=== PATIENT | female | born 1985 | race Two or more races ===

== ENCOUNTER → 2020-06-23 14:24 | Outpatient (BNVA) | payer MEDICAID, SELFPAY | PROVIDERS: Visit Provider Advanced Practice Midwife | DX: Z01.419 Encounter for gynecological examination (general) (routine) without abnormal findings (principal); E66.8 Other obesity; E28.2 Polycystic ovarian syndrome | CPT/HCPCS: 81025; 99395 ==

== ENCOUNTER 2021-04-08 07:21 | Emergency (ER) | payer MEDICAID, SELFPAY ==
[2021-04-08 07:28] VITALS: BP 125/71; PULSE 114; O2SAT 98
[2021-04-08 07:51] VITALS: BP 122/76; PULSE 128; RESP 22; TEMP 38.4; O2SAT 97; BMI 41.6
[2021-04-08] MEDS: Acetaminophen 325 MG TABLET 650 MG PO (08:01)
--- NOTE | 2021-04-08 09:04 | ED_ITS ---
HPI - General Adult General Chief complaint: General Medical Stated complaint: charles,nausea,fully vacc Time Seen by Provider: 04/08/21 09:04 Source: patient Mode of arrival: ambulatory Limitations: no limitations History of Present Illness HPI narrative: headache sore throat starting last night. Tactile temp. Onset (ago): hour(s) Radiation: non-radiation Severity: mild Pain Consistency: constant Exacerbating factors: none Associated symptoms: fever/chills Treatments prior to arrival: none Related Data Previous Rx's Medication Instructions Recorded medroxyprogesterone 10 mg tablet 10 mg PO DAILY #10 tab 06/23/20 (Provera) vitamin with calcium 1 tab PO BEDTIME #30 tab 06/23/20 no.72-iron 27 mg-folic acid 1 mg tablet ( Vitamins Plus Low Iron) Allergies Allergy/AdvReac Type Severity Reaction Status Date / Time nut - unspecified [nut] Allergy Unknown RASH Unverified 02/13/20 15:45 NUTS Allergy Unknown hives Uncoded 04/30/19 00:00 Review of Systems Constitutional: Constitutional: Reports no additional constitutional complaints Eyes: Eyes: Reports no additional eye complaints ENT: Denies dizziness Cardiovascular: Cardiovascular: Reports no additional cardiovascular complaints Respiratory: Respiratory: Reports as per HPI Gastrointestinal: Gastrointestinal: Reports no additional gastrointestinal complaints Genitourinary: Genitourinary: Reports no additional female genitourinary complaints Musculoskeletal: Musculoskeletal: Reports no additional musculoskeletal complaints Integumentary/Breasts: Skin/Breast: Denies rash Neurologic: Reports system reviewed and no additional complaints, except as documented, Denies dizziness and Denies Sensory deficit (Neuro) Psychiatric: Psychiatric: Denies anxiety [facility] Past Medical History Medical History Irregular menses PCOS (polycystic ovarian syndrome) Surgical History History of loop electrical excision procedure (LEEP) Social History Social History Alcohol intake: never Advance Directives: No Patient : No Sexual orientation: Straight/Heterosexual Physical Exam Vital Signs: Vital Signs: Last Vital Signs Temp 97.8 F 04/08/21 12:31 Pulse 105 H 04/08/21 12:31 Resp 18 04/08/21 12:31 BP 124/74 04/08/21 12:31 Pulse Ox 98 04/08/21 12:31 Body Mass Index 41.6 Const: Other: obese, hirsuit, complaining of sore throat and headach Nu tritional Appearance: obese Orientation/consciousness: oriented to person and patient oriented x3 Limitations: no limitations HENMT: Other: TMS and oral pharynx normal, no exudate seen Head: Yes normal to inspection Ears: external ears normal General nose exam: Normal external nose present Mouth: Normal oral and palatal mucosa present and oropharynx normal Throat: Yes posterior oropharynx normal Eyes: General: appearance normal, both eyes and all related structures Neck: Other: supple Neck: Yes normal visual inspection Chest: Chest palpation & inspection: normal inspection of the chest Resp: Auscultation: clear to auscultation bilaterally Cardio: Jugular venous distension: no JVD Rate: regular rate Rhythm: regular rhythm Heart sounds: S1 normal heart sound present and S2 normal heart sound present GI: Inspection: Yes normal to inspection Palpation (GI): Soft to palpation, nontender and No hepatosplenomegaly present Auscultation: normal bowel sounds : General: Yes no CVA tenderness Back/Spine/Pelvis: Back: no CVA tenderness Skin: General skin exam: no rashes or lesions noted Neuro: General: oriented to person and patient oriented x3 Cranial nerves: Yes CN's II-XII intact bilaterally Motor exam (neuro): 5/5 motor strength present throughout Sensory Exam: No Sensory deficit (Neuro) Extrem: General: Yes normal to inspection Psych: Appearance: grossly normal Course Reevaluation(s) Reevaluation #1: patient with viral pharyngitis, will dc on tylenol and motrin rotating Time: 12:35 Medical Decision Making Lab Data Labs: Lab Results 04/08/21 04/08/21 Range/Units 09:04 09:04 COVID-19 (MARILY) Negative (Negative) COVID-19 Clin Com See Note S. pyogenes GrpA YARA Negative (Negative) Discharge Plan Discharge Clinical Impression: Viral illness Pharyngitis Qualifiers: Pharyngitis/tonsillitis etiology: unspecified etiology Qualified Code(s): J02.9 - Acute pharyngitis, unspecified Patient Disposition: Home, Self-Care Instructions: Pharyngitis (ED), Viral Syndrome (ED) Additional Instructions: tylenol 1gram alternating with motrin 800mg every three hours for fever and pain Prescriptions: No Action medroxyprogesterone [Provera] 10 mg tablet 10 mg PO DAILY Qty: 10 RF: 3 Vitamin Plus Low Iron 27 mg iron- 1 mg tablet 1 tab PO BEDTIME Qty: 30 RF: 11 Referrals: [facility] [Primary Care Provider] - 1 week
[2021-04-08 09:09] VITALS: BP 122/73; PULSE 102; RESP 20; TEMP 38.1; O2SAT 96
[2021-04-08 09:20] LABS: IDNOW Serial# 9DD0AD1C; Strep A Nucleic Acid Negative (Negative)
[2021-04-08 09:32] LABS: COVID-19 Test Negative (Negative)
[2021-04-08] MEDS: Ibuprofen 800 MG TABLET PO (10:48)
--- NOTE | 2021-04-08 10:49 | PC.NURSE ---
Pt has been resting quietly. Given po ibuprofen for throat and head pain.
[2021-04-08 12:31] VITALS: BP 124/74; PULSE 105; RESP 18; TEMP 36.6; O2SAT 98
== END 2021-04-08 12:43 | disposition home or self-care (01) ==
PROVIDERS: Emergency Provider Emergency Medicine
DX: B34.9 Viral infection, unspecified (principal); J02.9 Acute pharyngitis, unspecified; Z20.822 Contact with and (suspected) exposure to COVID-19
CPT/HCPCS: 36415; 87635; 87651; 99283; 99284

== ENCOUNTER 2022-03-10 10:45 | Outpatient (REF) | payer MEDICAID, SELFPAY ==
[2022-03-15 11:42] LABS: HPV mRNA E6/E7 rflx Not Detected (Not Detected)
== END 2022-03-10 10:46 | disposition home or self-care (01) ==
LOC: HO.LNP 10:45
PROVIDERS: Visit Provider Advanced Practice Midwife
DX: Z01.419 Encounter for gynecological examination (general) (routine) without abnormal findings (principal); E28.2 Polycystic ovarian syndrome; Z11.51 Encounter for screening for human papillomavirus (HPV)
CPT/HCPCS: 87624; 88142

== ENCOUNTER → 2022-11-08 08:03 | Outpatient (BNVA) | payer MEDICAID, SELFPAY | PROVIDERS: PCP Internal Medicine; Referring Provider Internal Medicine; Visit Provider Physician Assistant ==

== ENCOUNTER 2023-12-18 12:14 | Outpatient (REF) | payer MEDICAID, SELFPAY ==
[2023-12-18 13:36] LABS: Estimated Average Glucose 117 mg/dL; Hemoglobin A1c % 5.7 % (<6.0)
[2023-12-18 13:59] LABS: Alanine Aminotransferase 24 U/L (0-31); Albumin Level 4.2 g/dL (3.5-5.0); Alkaline Phosphatase 65 U/L (39-117); Anion Gap 13 (12-20); Aspartate Amino Transferase 25 U/L (5-31); Bilirubin Total 0.3 mg/dL (0.0-1.0); Blood Urea Nitrogen 12 mg/dL (9-16); Calcium 9.4 mg/dL (8.4-10.2); Carbon Dioxide 25 mmol/L (22-29); Chloride 104 mmol/L (96-108); Estimated Glomerular Filt Rate > 60; Glucose Random 135 mg/dL (60-115); Potassium 3.8 mmol/L (3.3-5.1); Sodium 138 mmol/L (135-145); Total Protein 7.7 g/dL (6.5-8.0)
[2023-12-19 08:55] LABS: Syphilis Screen Reactive (Nonreactive)
[2023-12-21 15:15] LABS: RPR Quantitative Reactive 1:4 (Nonreactive); T.Pallidum Particle Agg Test Reactive (Nonreactive)
== END 2023-12-18 12:15 | disposition home or self-care (01) ==
LOC: HO.HHCL 12:14
PROVIDERS: Referring Provider Advanced Practice Midwife; Visit Provider Nurse Practitioner Family
DX: E66.01 Morbid (severe) obesity due to excess calories (principal); Z68.42 Body mass index [BMI] 45.0-49.9, adult; A53.0 Latent syphilis, unspecified as early or late
CPT/HCPCS: 36415; 80053; 83036; 86592; 86780

== ENCOUNTER 2024-07-25 13:11 | Outpatient (AMB) | payer OTHER, SELFPAY ==
--- NOTE | 2024-07-25 13:15 | MHC.OFFVIS ---
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 She has a history of abnormal Pap smears. She says her periods come irregularly she has PCOS for years she said she lost her insurance for few years and now she has a back. She says her last periods started that the beginning of June and it lasted as usual about 3 days. She said she has had longer periods of no menses in the past and on questioning she tells me she was given Provera before. She tells me she has been trying to get for about 3 years. . 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 She tends to nothing during the day and eats at night. She was on metformin in the past she says for PCOS. She said she had asked about weight loss injections in the past and was told she did not have the qualifications for. She says she had gone to the weight management program in the past but that is when she lost her insurance and so she could not continue with them. She is very much interested in starting again she has made an appointment with her primary care provider but it is not till the end of this month and she was going to be asking about weight management referral again so she would be very happy if I could place the referral today. She is not sure when she last had fasting blood work but she said her blood test in the office was okay She does not think she had pre diabetes. She also went to urgent care downstairs at the [facility] about a week ago for what they said was an abscess under her left breast and gave her antibiotics and something for her leg but she got mixed up on how to take them and she thinks maybe she has half a bottle left and she was taking the medicines about once a day sometimes she would forget. [facility] Medical History Irregular menses PCOS (polycystic ovarian syndrome) Surgical History History of loop electrical excision procedure (LEEP) Family History Mother Hypertension Father No problems noted. Sister No problems noted. Brother No problems noted. Social History Household Members: None Housing: House Alcohol intake: current Alcohol intake frequency: holidays/special occasions only Patient Tobacco Use Status: Never used Tobacco Current occupational status: employed Current occupation: [employer] employee Sexual orientation: Straight/Heterosexual Gender identity: Female Female Reproductive History Menstrual Age of Menarche: 17 Duration of menses: other control method: none Total pregnancies: 0 Date of last pap smear: 03/11/22 (neg.) History of abnormal pap smear: Yes (hx,abn) Physical Exam Vital Signs: Last Vital Signs BP 118/70 07/25/24 13:16 BMI result Body Mass Index 49.8 Const Other: Marked obesity hirsute is Um thinning of hair on scalp. Patient has a healing abscess that is no longer draining under left breast in bra line that is not inflamed. Patient says she popped it about a week ago and it is getting better. General: healthy appearing, comfortable, no acute distress, well developed and alert Nutritional Appearance: average body habitus Orientation/consciousness: patient oriented x3 Limitations: no limitations HEENT Head: Yes normocephalic Neck Neck: Yes normal visual inspection Chest Chest palpation & inspection: normal inspection of the chest Breast/axilla inspection: normal inspection of the breasts and normal inspection of the axillae Breast/axilla palpation: normal palpation of the breasts and normal palpation of the axillae Resp Effort & Inspection: normal respiratory effort GI Inspection: Yes normal to inspection, No Abdominal wall edema and No distended Palpation (GI): Soft to palpation and nontender Other: External vagina within normal limits adipose tissue noted making challenging exam cervix nulliparous pink smooth healthy appearing vaginal mucosa and cervical surface slightly reddened with a white discharge that is consistent with mild yeast patient denies vaginal itching at this time.. No organomegaly nontender fair tone with Kegel. General: Yes bladder normal to palpation External Female Exam: normal external appearance and normal appearance of the urethra Speculum Exam - Vagina: normal appearance of the vagina, normal palpation and normal vaginal discharge Speculum Exam - Cervix: normal appearance of the cervix, normal palpation and nontender Bimanual exam- vagina & uterus: normal bimanual exam, normal palpation, uterine size normal, bladder normal to palpation, consistency normal, normal palpation, uterine mobility normal, uterine shape normal, No Cervical tenderness present, non-tender and no cervical motion tenderness Bimanual Exam- Adnexa, other: normal adnexae, no masses, normal and No adnexal tenderness Neuro General: patient oriented x3 Assessment & Plan Assessment & Plan (1) PCOS (polycystic ovarian syndrome): Code(s): E28.2 - Polycystic ovarian syndrome Category: Medical (2) Well woman exam with routine gynecological exam: Code(s): Z01.419 - Encounter for gynecological examination (general) (routine) without abnormal findings Category: Medical (3) Irregular menses: Code(s): N92.6 - Irregular menstruation, unspecified Category: Medical (4) Family planning: Code(s): Z30.09 - Encounter for other general counseling and advice on contraception Category: Social Hx (5) Hirsutism: Code(s): L68.0 - Hirsutism Category: Medical (6) Obesity, morbid, BMI 40.0-49.9: Code(s): E66.01 - Morbid (severe) obesity due to excess calories Category: Medical Plan Pap smear done because of history of abnormals. And also she is due Cultures done for infection based on how it appears I am treating her with miconazole 7 now which may or may not be covered by her insurance. She does not have to treat it now but it will be available to her should she start feeling itchy as she is still taking antibiotics. Patient was seeking guidance from me on what she should do about the antibiotics she is on and given that she did not know the name she did not know how many she was given she did not know [place] she was put to taken a day or for how many days I could not begin to give her guidance on this and I suggested she either return to urgent care and described what she has left or returned to the pharmacist and ask the same question as I could not pass and opinion on this. It did appear like the abscess was healing Regardless most of the discussion was around her obesity and the PCOS and her desire to get and my recommendation that she not get until she work on losing the weight and lose significant weight. Discussed the interplay of PCOS and all of the elevated hormones which are leading to all of the dyscrasias that she is noticing including hair loss the hirsute is Um the irregular menses and the obesity in general discussed the likelihood if not now of having prediabetes or diabetes sooner later because of the elevated hormonal milieu. Discussed the PCOS is more of a symptom then cause of the issue and the metformin would be given more because of the pre diabetes then PCOS in general. I offered to place for her a referral to the bariatric weight management program as she is interested now in resuming her efforts. Discussed that it may still have to go through her primary care provider and she should definitely discuss this with her primary care provider at the end of July as well. Discussed also that if she ever missed a period longer than 3 months she should call and be seen so that we could prescribe Provera for her she has taken this in the past. Discussed that there is no one pill for PCOS that sometimes we prescribed control pills or other pills to manage the menstrual part of it and that sometimes if somebody is on a control pill soft sugar cutter may also prescribe a pill for the hirsute is Um but that that is a separate issue she may also need a referral to endocrinology we will leave that to her primary care provider. She also expressed interested in the injections for weight loss and I see this is in the conversation she should continue with her primary care provider as well. Orders: Orders Pap Smear Today Z00.00 - Encounter for general adult medical examination without abnormal findings Bacterial Vaginosis Panel Today N89.8 - Other specified noninflammatory disorders of vagina CT NG by PCR Today N89.8 - Other specified noninflammatory disorders of vagina, Z20.2 - Contact with and (suspected) exposure to infections with a predominantly sexual mode of transmission Referrals Medical Weight Management Referral E28.2 - Polycystic ovarian syndrome, E66.01 - Morbid (severe) obesity due to excess calories, L68.0 - Hirsutism, N92.6 - Irregular menstruation, unspecified, Z01.419 - Encounter for gynecological examination (general) (routine) without abnormal findings, Z30.09 - Encounter for other general counseling and advice on contraception Medications: New miconazole nitrate 2% (Miconazole-7) 1 appful vaginal BEDTIME 7 days 45 grams 1RF Coding Level of Care Code Complex EM visit Add On G2211 Diagnoses PCOS (polycystic ovarian syndrome) E28.2 Well woman exam with routine gynecological exam Z01.419 Irregular menses N92.6 Family planning Z30.09 Hirsutism L68.0 Obesity, morbid, BMI 40.0-49.9 E66.01
[2024-07-25 13:16] VITALS: BP 118/70; BMI 49.8
--- OUTSIDE RECORDS SUMMARY | 2024-07-25 15:43 | XMS_ITS | Encounter Summary ---
Author Organization [employer] Address [address] [place] [address] [address] [place] [address] Care Team Providers Care Directional Survey Drafter Name Role Phone Willa Charles MD Primary Care Provide r Encounter Details Date Type Department Care Team (Late st Contact Info) Description 08/19/2022 Orders Only [facility] [address] [place] [id number] Willa Charles MD [address] [place], [place] [phone] Pruritus (Primary Dx) Social History Tobacco Use Types Packs/Day Years Used Date Smoking Tobacco: Never Passive Smoke Exposure: Never Smokeless Tobacco: Never Alcohol Use Standard Drinks/Week Comments Not Currently 0 (1 standard drink = 0.6 oz pur e alcohol) Comments No Sex and Gender Information Value Date Recorded Sex Assigned at Female 03/28/2022 10:20 AM EDT Legal Sex Female 10:20 AM EDT Gender Identity Female 03/28/2022 10:20 AM EDT Sexual Orientation Straight 03/28/2022 10 :20 AM EDT COVID-19 Exposure Response Date Recorded In the last 10 days, have yo u been in contact with someone who was confirmed or suspected to have Coronavirus/COVID-19? No / Unsure 08/18/2022 3:31 PM EDT documented as of this encounter Plan of Treatment Upcoming Encounters Date Type Department Care Team (Late st Contact Info) Description 08/26/2024 9:15 AM EDT Office Visit [facility] [address] [place] [id number] Willa Charles MD [address] [place], [place] [phone] documented as of this encounter Visit Diagnoses Diagnosis Pruritus- Primary Unspecified pruritic disorder documented in this encounter Care Teams Directional Survey Drafter Relationship Specialty Start Date End Date Willa Charles MD [address] [place], [place] [phone] PCP - General Family Medicine 02/07/18 documented as of this encounter
--- OUTSIDE RECORDS SUMMARY | 2024-07-25 15:44 | XMS_ITS | Encounter Summary ---
Author Organization [employer] Address [address] [place] [address] 7[address] [place] [address] Care Team Providers Care Bed Teacher Name Role Phone Willa Charles MD Primary Care Provide r Reason for Referral * Consultation (Routine) - Closed Specialty Diagnoses / Procedures Referred By Contac t Referred To Contact Physical Therapy Diagnoses Sprain of left hip, initial encounter Chronic left-sided low back pain with left-sided sciatica Clarita Fisher MD [address] [place] [phone] Phone: tel: fax: [facility] Physical Therapy [address] [place] [address] Phone: tel: fax: Referral ID Status Reason Start Date Expiration Date V isits Requested Visits Authorized [id number] Closed Specialty Services Required 07/17/2024 07/17/2025 1 1 Reason for Visit * Reason Comments left leg pain Encounter Details Date Type Department Care Team (Late st Contact Info) Description 07/17/2024 6:00 PM EST Office Visit [facility] [address] [place] [address] [phone] Clarita Fisher MD [address] [place] [address] [phone] Sprain of left hip, initial encounter (Primary Dx); Chronic left-sided low back pain with left-sided sciatica; Folliculitis; Nasal congestion; Class 3 severe obesity due to excess calories without serious comorbidity with body mass index (BMI) of 45.0 to 49.9 in adult ([facility]) Social History Tobacco Use Types Packs/Day Years Used Date Smoking Tobacco: Never Passive Smoke Exposure: Never Smokeless Tobacco: Never Alcohol Use Standard Drinks/Week Comments Never 0 (1 standard drink = 0.6 oz pur e alcohol) Alcohol Answer Date Recorded Frequency of Alcohol Consumption Not on file 12/18/2023 Average Number of Drinks Not on file 024 Frequency of Binge Drinking Not on file 11/27 Score 0 12/18/2023 Depression Answer Date Recorded Patient Health Questionnaire-9 Score 0 12/18/2023 Patient Health Questionnaire-9 Score 0 12/18/2023 Last PHQ-9: Questionnaire Data Not on file 0 12/18/2023 Housing Stability Answer Date Recorded What is your housing situation today? I have dhruv espinoza 03/27/[address] you li ve. Do you have problems with any of the following? None of the above 03/27/2023 Food Insecurity Answer Date Recorded Within the past 12 months, y ou worried that your food would run out before you got money to buy more: Never True 03/27/2023 Within the past 12 months,th e food you bought just didn't last and you didn't have enough money to get more: Never True Transportation Answer Date Recorded In the past 12 months, has l ack of transportation kept you from medical appts, meetings, work or from getting things needed for daily living? No 03/27/2023 Utilities Answer Date Recorded In the past 12 months, has t he electric, gas, oil or water company threatened to shut off services in your home? No 03/27/2023 Depression Answer Date Recorded Patient Health Questionnaire-2 Score 0 12/18/2023 Comments No Sex and Gender Information Value Date Recorded Sex Assigned at Female 03/28/2022 10:20 AM EDT Legal Sex Female 10:20 AM EDT Gender Identity Female 03/28/2022 10:20 AM EDT Sexual Orientation Straight 03/28/2022 10 :20 AM EDT documented as of this encounter Last Filed Vital Signs Vital Sign Reading Time Taken Comments Blood Pressure 133/69 07/17/2024 5:51 PM EST Pulse 88 07/17/2024 5:51 PM EST Temperature 36.1 ??C (97 ??F) 07/17/2024 5:51 PM EST Respiratory Rate 20 07/17/2024 5:51 PM EST Oxygen Saturation 98% 07/17/2024 5:51 PM EST Inhaled Oxygen Concentration - - Weight 115 kg (254 lb) 07/17/2024 5:51 PM EST Height 152.4 cm (5') 07/17/2024 5:51 PM EST Body Mass Index 49.61 07/17/2024 5:51 PM EST documented in this encounter Progress Notes * Clarita Fisher MD - 07/17/2024 6:00 PM EST SUBJECTIVE: Ne Neff is a 39 y.o. year old female who presents for [facility]/leg pain . Denies recent illness, injury, or hospitalization. Acute Concerns: Patient has exacerbation of low back pain radiated to the left hip and leg for approximately 2 weeks. She has not had any recent fall or accidents but does recall several times when she has been walking on ice and slipped without falling. She has history of chronic low back pain for many years, no UTI symptoms, fever, chills, nausea or vomiting. Social History Social History Narrative Not on file Patient Active Problem List Diagnosis Childhood obesity High grade squamous intraepithelial lesion of cervix Polycystic ovary syndrome Left foot pain Class 3 severe obesity due to excess calories without serious comorbidity with body mass index (BMI) of 45.0 to 49.9 in adult ([facility]) Neck pain Muscle spasm Tinea versicolor PCOS (polycystic ovarian syndrome) COVID-19 virus infection Right non-suppurative otitis media Missed period Sprain of left hip Chronic left-sided low back pain with left-sided sciatica Folliculitis No family history on file. Review of Systems Constitutional: Negative for chills, fatigue and fever. HENT: Positive for rhinorrhea. Negative for congestion, ear pain, nosebleeds, sinus pressure, sore throat and trouble swallowing. Eyes: Positive for itching. Negative for pain and discharge. Respiratory: Negative for cough, chest tightness and shortness of breath. Cardiovascular: Negative for chest pain, palpitations and leg swelling. Gastrointestinal: Negative for abdominal pain, blood in stool, constipation, diarrhea and nausea. Endocrine: Negative for polydipsia and polyuria. Genitourinary: Negative for dysuria, frequency, genital sores, pelvic pain and vaginal discharge. Musculoskeletal: Positive for arthralgias, back pain and gait problem. Negative for neck pain. Skin: Negative for rash. Allergic/Immunologic: Negative for environmental allergies. Neurological: Negative for dizziness, seizures, weakness, light-headedness and headaches. Hematological: Negative for adenopathy. Psychiatric/Behavioral: Negative for agitation, behavioral problems, self-injury and suicidal ideas. OBJECTIVE: Vitals: 07/17/24 1751 BP: 133/69 Pulse: 88 Resp: 20 Temp: 97 ??F (36.1 ??C) SpO2: 98% Physical Exam HENT: Right Ear: Tympanic membrane and ear canal normal. Left Ear: Tympanic membrane and ear canal normal. Mouth/Throat: Mouth: Mucous membranes are moist. Pharynx: No oropharyngeal exudate or posterior oropharyngeal erythema. Eyes: Pupils: Pupils are equal, round, and reactive to light. Cardiovascular: Rate and Rhythm: Regular rhythm. Pulses: Normal pulses. Heart sounds: Normal heart sounds. No murmur heard. Pulmonary: Breath sounds: Normal breath sounds. Abdominal: General: Bowel sounds are normal. Palpations: Abdomen is soft. Tenderness: There is no abdominal tenderness. Musculoskeletal: Cervical back: Neck supple. Thoracic back: Spasms and tenderness present. Lumbar back: Tenderness present. Decreased range of motion. Positive left straight leg raise test. Left hip: Tenderness present. Decreased range of motion. Decreased strength. Left upper leg: Tenderness (thigh/ext) present. Left knee: Tenderness present over the lateral joint line and LCL. Skin: General: Skin is warm. Findings: Lesion (1cm papular lesion under left breast area, midly erythematous, no discharge or tenderness. Mild I can see my patients that I see need to CC patient be seen) present. Neurological: General: No focal deficit present. Mental Status: She is alert and oriented to person, place, and time. Psychiatric: Mood and Affect: Mood normal. Behavior: Behavior normal. Office Visit on 07/17/2024 Component Date Value Ref Range Status Hemoglobin A1C 07/17/2024 5.9 4.0 - 6.0 % Final QC Media Lot # 07/17/2024 [id number] Final Lot# Expiration Date 07/17/2024 [id number] Final Glucose Blood, POC 07/17/2024 97 60 - 200 mg/dL Final QC Media Lot # 07/17/2024 [id number] Final Lot# Expiration Date 07/17/2024 [id number] Final Problem List Items Addressed This Visit Sprain of left hip - Primary Take meloxicam and Flexeril. Toradol 30 mg IM today, can take Tylenol tomorrow Refer to PT. 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 Meloxicam x 1 week +Tylenol twice daily as needed and Flexeril nightly. Caution with constipation, dry mouth and dizziness. Apply heat to affected area and diclofenac gel twice daily x 1 week then as needed. Referred to PT and follow-up with PCP in 4 to 6 weeks Relevant Orders Referral to Physical Therapy Folliculitis No evidence of diabetes, patient is prediabetic and results have been discussed with her. Keep the area clean and dry with soap and water. Can apply Desitin ointment to affected area, avoid poking on the area. Take Bactrim x 7 days. Class 3 severe obesity due to excess calories without serious comorbidity with body mass index (BMI) of 45.0 to 49.9 in adult (CMS/HCC) No evidence of DM Advised to fu w PCP re Obesity rx w meds Other Visit Diagnoses Nasal congestion Relevant Medications levocetirizine (Xyzal) 5 MG tablet Follow Up: Current Outpatient Medications on File Prior to Visit Medication Sig Dispense Refill amoxicillin (Amoxil) 500 MG capsule TAKE 1 CAPSULE BY MOUTH EVERY TWELVE HOURS FOR 10 DAYS 20 capsule 0 fluticasone (Flonase) 50 MCG/ACT nasal spray 1-2 sprays per nostril as needed for congestion up to BID, Shake gently. Before first use, prime pump. After use, clean tip and replace cap. 16 g 2 metFORMIN, OSM, (Fortamet) 500 MG 24 hr tablet Take 1 tablet (500 mg) by mouth with evening meal. Do not crush, chew, or split. 30 tablet 11 [DISCONTINUED] acetaminophen (Tylenol 8 Hour) 650 MG ER tablet TAKE 1 TABLET BY MOUTH EVERY 8 HOURSAS NEEDED FOR MILD PAIN 30 tablet 0 [DISCONTINUED] cyclobenzaprine (Flexeril) 10 MG tablet Take 1 tablet (10 mg) by mouth if needed at bedtime for muscle spasms for up to 10 days. 10 tablet 0 [DISCONTINUED] diphenhydrAMINE (BENADryl) 25 MG tablet Take 1 tablet (25 mg) by mouth every 6 (six)hours if needed for itching. 30 tablet 0 [DISCONTINUED] levocetirizine (Xyzal) 5 MG tablet Take 1 tablet (5 mg) by mouth in the evening. 30 tablet 0 No current facility-administered medications on file prior to visit. documented in this encounter Miscellaneous Notes * Assessment & Plan Note - Clarita Fisher MD - 07/17/2024 7:07 PM EST Associated Problem(s): Class 3 severe obesity due to excess calories without serious comorbidity with body mass index (BMI) of 45.0 to 49.9 in adult ([facility]) No evidence of DM Advised to fu w PCP re Obesity rx w meds * Assessment & Plan Note - Clarita Fisher MD - 07/17/2024 6:55 PM EST Associated Problem(s): Sprain of left hip Take meloxicam and Flexeril. Toradol 30 mg IM today, can take Tylenol tomorrow Refer to PT. Counseled against sitting or standing in the same position for more than 1 hour * Assessment & Plan Note - Clarita Fisher MD - 07/17/2024 6:54 PM EST Associated Problem(s): Folliculitis No evidence of diabetes, patient is prediabetic and results have been discussed with her. Keep the area clean and dry with soap and water. Can apply Desitin ointment to affected area, avoid poking on the area. Take Bactrim x 7 days. 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 Meloxicam x 1 week +Tylenol twice daily as needed and Flexeril nightly. Caution with constipation, dry mouth and dizziness. Apply heat to affected area and diclofenac gel twice daily x 1 week then as needed. Referred to PT and follow-up with PCP in 4 to 6 weeks documented in this encounter Plan of Treatment Upcoming Encounters Date Type Department Care Team (Late st Contact Info) Description 08/26/2024 9:15 AM EDT Office Visit [facility] [address] [place] [phone] Willa Charles MD [address] [place] [address] Scheduled Referrals Name Type Priority Associated Diagnoses Orde r Schedule Referral to Physical Therapy Outpatient Referral Routine Sprain of left hip, initial encounter Chronic left-sided low back pain with left-sided sciatica Expected: 07/17/2024 (Approximate), Expires: 07/17/2025 documented as of this encounter Procedures Procedure Name Priority Date/Time Associated Diagnosis Comments POCT GLYCATED HEMOGLOBIN, TOTAL Routine 07/17/2024 7:16 PM EST Class 3 severe obesity due to excess calories without serious comorbidity with body mass index (BMI) of 45.0 to 49.9 in adult ([facility]) POCT GLUCOSE Routine 07/17/2024 7:16 PM EST Class 3 severe obesity due to excess calories without serious comorbidity with body mass index (BMI) of 45.0 to 49.9 in adult ([facility]) documented in this encounter Results * POCT Glucose (07/17/2024 7:16 PM EST) Glucose Blood, POC 97 60 - 200 mg/dL QC Media Lot # [id number] Lot# Expiration Date Blood Capillary blood specimen / Unknown 07/17/2024 7:16 PM EST Clarita Fisher MD POINT OF CARE TEST ENTER /EDIT ORDERABLES Final Result * POCT HGB A1C (07/17/2024 7:16 PM EST) Hemoglobin A1C 5.9 4.0 - 6.0 % QC Media Lot # [id number] Lot# Expiration Date 8, Blood 07/17/2024 7:16 PM EST Clarita Fisher MD POINT OF CARE TEST ENTER /EDIT ORDERABLES Final Result documented in this encounter Visit Diagnoses Diagnosis Sprain of left hip, initial encounter- Primary Chronic left-sided low back pain with left-sided sciatica Folliculitis Other specified disease of hair and hair follicles Nasal congestion Other diseases of nasal cavity and sinuses Class 3 severe obesity due to excess calories without serious comorbidity with body mass index (BMI) of 45.0 to 49.9 in adult ([facility]) documented in this encounter Administered Medications Inactive Administered Medications - up to 3 most recent administrations Medication Order MAR Action Action Date Dose Rate Site ketorolac (Toradol) injection 30 mg 30 mg, Intramuscular, Once, On Mon07/17/24 at 1845, For 1 doseIndications:Sprain of left hip, initial encounter Given 07/17/2024 6:45 PM EST 30 mg Left Deltoid documented in this encounter Additional Health Concerns Assessment Noted Time PHQ-9 Depression Total Score: 0 12/18/19 24 10:49 AM EDT documented as of this encounter Care Teams Bed Teacher Relationship Specialty Start Date End Date Willa Charles MD [address] [place] [address] PCP - General Family Medicine 02/07/18 documented as of this encounter
--- OUTSIDE RECORDS SUMMARY | 2024-07-25 15:44 | XMS_ITS | Encounter Summary ---
Author Organization [facility] Address [address] [place] [address] Phone Care Team Providers Care Primary Teacher Name Role Phone Lakeisha Lau NP Primary Care Provider Unavail able Encounter Details Date Type Department Care Team (Late st Contact Info) Description 01/12/2017 Conversion Encounter [facility] - [address] [address] Social History Tobacco Use Types Packs/Day Years Used Date Smoking Tobacco: Never Assessed Comments Unknown Sex and Gender Information Value Date Recorded Sex Assigned at Not on file Legal Sex Female 4:20 PM EDT Gender Identity Not on file Sexual Orientation Not on file documented as of this encounter Plan of Treatment Not on file documented as of this encounter Visit Diagnoses Not on filedocumented in this encounter Care Teams Primary Teacher Relationship Specialty Start Date End Date Lakeisha Lau NP PCP - General 01/06/17 documented as of this encounter
--- OUTSIDE RECORDS SUMMARY | 2024-07-25 15:44 | XMS_ITS | Encounter Summary ---
Author Organization [email or web address] Address [address] [place] [address] 7 [place] [address] Care Team Providers Care Workforce Management Coordinator Name Role Phone Willa Charles MD Primary Care Provide r Reason for Visit * Reason Onset Date Comments Referral 08/02/2022 Encounter Details Date Type Department Care Team ([facility] st Contact Info) Description 08/02/[address] [facility] [address] [place] [address] Willa Charles MD [address] [place] [address] Referral Social History Tobacco Use Types Packs/Day Years Used Date Smoking Tobacco: Never Passive Smoke Exposure: Never Smokeless Tobacco: Never Alcohol Use Standard Drinks/Week Comments Not Currently 0 (1 standard drink = 0.6 oz pur e alcohol) Comments Unknown Sex and Gender Information Value Date Recorded Sex Assigned at Female 03/28/2022 10:20 AM EDT Legal Sex Female 10:20 AM EDT Gender Identity Female 03/28/2022 10:20 AM EDT Sexual Orientation Straight 03/28/2022 10 :20 AM EDT documented as of this encounter Miscellaneous Notes * Telephone Encounter - Haven Castellon RN - 08/02/2022 1:11 PM EST RN returned call to Britton who reports pt was referred by Dr. 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 Per Britton since pt has [facility] they need a referral from the PCP office due to needing an insurance authorization number. Britton is requesting referral to be faxed to [phone]. RNwill request referral to be placed by Dr. Sal and send message to referral team to process referral STAT as pt's appt is on 08/04/22. * Telephone Encounter - Leisaraphael Darin Willingham - 08/02/2022 11:22 AM EST Tc From [facility] with Facility of Dr. Yash Calderon, is requesting a referral for [facility] Consultation.Britton states that pt is already schedule in for an appt on 08/04/2022. Britton provided IP Number which is [phone] and also the facility fax number [phone] Please contact Britton if any questions at [phone] documented in this encounter Plan of Treatment Upcoming Encounters Date Type Department Care Team (Late st Contact Info) Description 08/26/2024 9:15 AM EDT Office Visit [facility] [address] [place] [address] [phone] Willa Charles MD [address] [place] [address] documented as of this encounter Visit Diagnoses Not on filedocumented in this encounter Care Teams Workforce Management Coordinator Relationship Specialty Start Date End Date Willa Charles MD [address] [place] [phone] PCP - General Family Medicine 02/07/18 documented as of this encounter
--- OUTSIDE RECORDS SUMMARY | 2024-07-25 15:44 | XMS_ITS | Clinical Summary ---
Author Organization [facility] Address [address] [place] [phone] Phone Care Team Providers Care Land Title Examiner Name Role Phone Lakeisha Lau NP Primary Care Provider Unavail able Immunizations Immunization Administration Dates Next Due DTP 01/03/1992, 9,1987,1987,1987 Hep B, ped/adol 03/08/2000,11/10/1999,06/09/1998 Hib (HbOC) 08/18/1988 MMR 11/19/1999,05/20/1988 OPV 01/03/1992, 9,1987,1986 Td (adult) (MBL), 2 Lf tetan us toxoid, PF, adsorbed 11/19/1999 Family History Relation Name Status Comments Brother Alive Brother: Alive and well Mother Alive Mother: Alive a nd well Sister Alive Sister: Alive a nd well Social History Tobacco Use Types Packs/Day Years Used Date Smoking Tobacco: Never Assessed Comments Unknown Sex and Gender Information Value Date Recorded Sex Assigned at Not on file Legal Sex Female 4:20 PM EDT Gender Identity Not on file Sexual Orientation Not on file Plan of Treatment Health Maintenance Due Date Last Done Comments DTaP,Tdap,and Td Vaccines (6 - Tdap) 11/20/1999 11/19/1999, 01/03/1992, 12/29/1988, Additional history exists Varicella Vaccines (1 of 2 - 13+ 2-dose series) 2000 Influenza Vaccines (#1) 2023 COVID-19 Vaccine (1 - 2023- season) 2024 HIB Vaccines Completed 08/18/1988 IPV Vaccines Completed 01/03/1992, 08/0 07/1988, 1987, Additional history exists MMR Vaccines Completed 11/19/1999, 05/20/1988 Hepatitis B Vaccines Completed 03/08/2000, 11/10/1999, 06/09/1998 HPV Vaccines Aged Out No longer eligi ble based on patient's age to complete this topic Hepatitis A Vaccines Aged Out No long er eligible based on patient's age to complete this topic Men B Vaccine Aged Out No longer elig ible based on patient's age to complete this topic Meningococcal Vaccine Aged Out No megan jennifer eligible based on patient's age to complete this topic Pneumococcal Vaccine Aged Out No long er eligible based on patient's age to complete this topic Care Teams Land Title Examiner Relationship Specialty Start Date End Date Lakeisha Lau NP PCP - General 01/06/17
--- OUTSIDE RECORDS SUMMARY | 2024-07-25 15:44 | XMS_ITS | Encounter Summary ---
Author Organization [employer] Address [address] [place] [address] 7[address] [place] [address] Care Team Providers Care Veterinary Technologist Name Role Phone Willa Charles MD Primary Care Provide r Encounter Details Date Type Department Care Team (Late st Contact Info) Description 02/27/2023 Abstract [facility] [address] [place] [address] [phone] [place]abella [place] Social History Tobacco Use Types Packs/Day Years Used Date Smoking Tobacco: Never Passive Smoke Exposure: Never Smokeless Tobacco: Never Alcohol Use Standard Drinks/Week Comments Not Currently 0 (1 standard drink = 0.6 oz pur e alcohol) Depression Answer Date Recorded Patient Health Questionnaire-9 Score 0 11/07/2022 Depression Answer Date Recorded Patient Health Questionnaire-2 Score 0 11/07/2022 Comments No Sex and Gender Information Value Date Recorded Sex Assigned at Female 03/28/2022 10:20 AM EDT Legal Sex Female 10:20 AM EDT Gender Identity Female 03/28/2022 10:20 AM EDT Sexual Orientation Straight 03/28/2022 10 :20 AM EDT documented as of this encounter Plan of Treatment Upcoming Encounters Date Type Department Care Team (Late st Contact Info) Description 08/26/2024 9:15 AM EDT Office Visit [facility] [address] [place] [address] [phone] Willa Charles MD [address] [place], [place] [phone] documented as of this encounter Visit Diagnoses Not on filedocumented in this encounter Additional Health Concerns Assessment Noted Time PHQ-9 Depression Total Score: 0 11/08/19 23 9:20 AM EDT documented as of this encounter Care Teams Veterinary Technologist Relationship Specialty Start Date End Date Willa Charles MD [address] [place] [address] PCP - General Family Medicine 02/07/18 documented as of this encounter
--- OUTSIDE RECORDS SUMMARY | 2024-07-25 15:44 | XMS_ITS | Encounter Summary ---
Author Organization [employer] Address [address] [place] [address] 7t [place] [address] Care Team Providers Care Window Repairer Name Role Phone Willa Charles MD Primary Care Provide r Reason for Visit * Reason Onset Date Comments Nurse Triage 07/17/2024 Encounter Details Date Type Department Care Team ([facility] st Contact Info) Description 07/17/2024 Telephone [facility] MEDICINE [address] [place] [address] Willa Charles MD [address] [place] [address] Nurse Triage Social History Tobacco Use Types Packs/Day Years [...] is your housing situation today? I have dhrvu espinoza 03/27/[address] you [...] encounter Miscellaneous Notes * Telephone Encounter - Kate Alvarado RN - 07/17/2024 4:05 PM EST Triage call Pt reports left leg pain from knee to foot. Pt reports some swelling noted but, left leg is not larger than right. Pt is able to ambulate with some pain. Pt is taking tylenol which helps a little bit. Pt denies injury. Pt is advised to come to [facility] this evening to see provider. Pt PCP isworking in [facility] this evening, open till 8pm. Pt agrees to come to [facility] in hopes to speak with PCP also. Pt is advised there will be a wait time and not definite will see PCP. Protocol Used: Leg Pain (Adult) Protocol-Based Disposition: See in Office or Video Visit Today or Tomorrow Video visit not offered Positive Triage Question: * Patient wants to be seen * All higher-acuity triage questions were negative Care Advice Discussed: * Reassurance and Education - Leg Pain * Pain Medicines * Pain Medicines - Extra Notes and Warnings * Reasons To Call Back - Moderate pain (such as limping) lasts more than 3 days - Mild pain lasts more than 7 days - Signs of infection occur (such as spreading redness, warmth, fever) - You become worse * Use a Cold Pack for Pain * Use Heat After 48 Hours for Pain * Local Heat - Bathtub Option * Telephone Encounter - Loniabimael Jacob - 07/17/2024 3:44 PM EST Symptom: Leg Pain - Not From Injury Outcome: Schedule an urgent appointment (within 1 hour) or talk to a nurse or provider soon Reason: Trouble walking The caller accepted this outcome. documented in this encounter Plan of Treatment Upcoming Encounters Date Type Department Care Team (Late st Contact Info) Description 08/26/2024 9:15 AM EDT Office Visit [facility] MEDICINE [address] [place] [phone] Willa Charles MD [address] [place] [phone] documented as of this encounter Visit Diagnoses Not on filedocumented in this encounter Additional Health Concerns Assessment Noted Time PHQ-9 Depression Total Score: 0 12/18/19 24 10:49 AM EDT documented as of this encounter Care Teams Window Repairer Relationship Specialty Start Date End Date Willa Charles MD [address] [place] [phone] PCP - General Family Medicine 02/07/18 documented as of this encounter
--- OUTSIDE RECORDS SUMMARY | 2024-07-25 15:44 | XMS_ITS | Clinical Summary ---
Author Organization [employer] Address [address] [place] [address] 7t [place] [address] Care Team Providers Care Journeyman Electrician Pv Installer Name Role Phone Willa Charles MD Primary Care Provide r Allergies Active Allergy Reactions Criticality Noted Date Comments Penicillin G Benzathine Itching 08/18/2022 Pt received bicillin injections #1 on 08/11/22 and area around injection sites were hard, red and warm to the touch. Black [place] Flavoring Agent (Non-Screening) 12/10/2014 Medications fluticasone (Flonase) 50 MCG/ACT nasal sprayIndicatio ns:COVID 1-2 sprays per nostril as needed for congestion up to BID, Shake gently. Before first use, prime pump. After use, clean tip and replace cap. 16 g 2 06/09/19 23 Active amoxicillin (Amoxil) 500 MG capsuleIndicat ions:Strep pharyngitis TAKE 1 CAPSULE BY MOUTH EVERY TWELVE HOURS FOR 10 DAYS 20 capsule 06/09/19 23 Active metFORMIN, OSM, (Fortamet) 500 MG 24 hr tablet Take 1 tablet (500 mg) by mouth with evening meal. Do not crush, chew, or split. 30 tablet 11 12/18/19 24 025 Active meloxicam (Mobic) 15 MG tablet Take 1 tablet (15 mg) by mouth Once per day. 15 tablet 07/17/19 25 026 Active Diclofenac Sodium 1 % gel Apply 1 inch topically if needed in the morning and at bedtime (pain). 60 g 07/17/19 25 025 Active acetaminophen (Tylenol 8 Hour) 650 MG ER tabletIndicati ons:Sprain of left hip, initial encounter Take 1 tablet (650 mg) by mouth every 8 (eight) hours if needed for mild pain. Do not crush, chew, or split. 90 tablet 07/17/19 25 Active cyclobenzaprin e (Flexeril) 10 MG tablet Take 1 tablet (10 mg) by mouth if needed at bedtime for muscle spasms for up to 10 days. 10 tablet 07/17/19 25 025 Active levocetirizine (Xyzal) 5 MG tabletIndicati ons:Nasal congestion Take 1 tablet (5 mg) by mouth in the evening. 30 tablet 3 07/17/19 25 Active acetaminophen (Tylenol 8 Hour) 650 MG ER tabletIndicati ons:Strep pharyngitis TAKE 1 TABLET BY MOUTH EVERY 8 HOURS NEEDED FOR MILD PAIN 30 tablet 08/20/19 23 025 Discontinued(Re order (will not trigger notification to Pharmacy)) diphenhydrAMIN E (BENADryl) 25 MG tabletIndicati ons:Pruritus Take 1 tablet (25 mg) by mouth every 6 (six) hours if needed for itching. 30 tablet 08/20/19 23 025 Discontinued(Th erapy completed) cyclobenzaprin e (Flexeril) 10 MG tablet Take 1 tablet (10 mg) by mouth if needed at bedtime for muscle spasms for up to 10 days. 10 tablet 12/18/19 24 025 Discontinued(Re order (will not trigger notification to Pharmacy)) levocetirizine (Xyzal) 5 MG tabletIndicati ons:Nasal congestion Take 1 tablet (5 mg) by mouth in the evening. 30 tablet 06/03/19 25 025 Discontinued(Re order (will not trigger notification to Pharmacy)) sulfamethoxazo le-trimethopri m (Bactrim DS) 800-160 MG tablet Take 1 tablet by mouth 2 times daily for 7 days. 14 tablet 07/17/19 25 025 Hospital, Clinic, or Other Facility Administered Medication Ordered Dose Route Frequency Start Date End Date Status ketorolac (Toradol) injection 30 mgIndications:Sprain of left hip, initial encounter 30 mg IM Once 07/17/2024 02/19/20 25 Ended Active Problems Problem Noted Date Diagnosed Date Sprain of left hip 07/17/2024 Assessment & Plan (07/17/2024 6:55 PM EST): Take meloxicam and Flexeril. Toradol 30 mg IM today, can take Tylenol tomorrow Refer to PT. 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 Meloxicam x 1 week +Tylenol twice daily as needed and Flexeril nightly. Caution with constipation, dry mouth and dizziness. Apply heat to affected area and diclofenac gel twice daily x 1 week then as needed. Referred to PT and follow-up with PCP in 4 to 6 weeks Folliculitis 07/17/2024 Assessment & Plan (07/17/2024 6:54 PM EST): No evidence of diabetes, patient is prediabetic and results have been discussed with her. Keep the area clean and dry with soap and water. Can apply Desitin ointment to affected area, avoid poking on the area. Take Bactrim x 7 days. COVID-19 virus infection 06/03/2024 Assessment & Plan (06/03/2024 4:14 PM EST): Drink plenty of fluids and rest Patient out of window for paxlovid Symptomatic treatment quarantine as per CDC guidelines Right non-suppurative otitis media 06/03/2024 Assessment & Plan (06/03/2024 4:14 PM EST): Doxycycline for 7 days (patient allergic to penicillins) Missed period 06/03/2024 Assessment & Plan (06/03/2024 4:13 PM EST): Patient will be contacted with results, she will get tested alter she is symptoms free Neck pain 12/18/2023 Assessment & Plan (12/18/2023 5:06 PM EDT): Consistent with mks strain, no focal bony tenderness, Reviewed walking and gentle stretching may trial prn muscle relaxor Muscle spasm 12/18/2023 Tinea versicolor 12/18/2023 Assessment & Plan (12/18/2023 5:05 PM EDT): Topical ketoconazole, anticipatory guidance reviewed PCOS (polycystic ovarian syndrome) 12/18/2023 Left foot pain 08/18/2023 Class 3 severe obesity due t o excess calories without serious comorbidity with body mass index (BMI) of 45.0 to 49.9 in adult 08/18/2023 Assessment & Plan (07/17/2024 7:07 PM EST): No evidence of DM Advised to fu w PCP re Obesity rx w meds Assessment & Plan (08/21/2023 10:53 AM EDT): Today extensive discussion was done about life style modifications I advise healthy diet (low calorie) and cardiovascular exercise Childhood obesity 06/09/2022 Polycystic ovary syndrome 06/09/2022 Assessment & Plan (12/18/2023 5:04 PM EDT): Will order labs today, explained limitations in coverage of glp-1 without concurrent diabetes, May resume metfromin for possible ovulatory benefit. 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 Encounters Date Type Department Care Team Description 07/17/2024 6:00 PM EST Office Visit [facility] [address] [place] [phone] Clarita Fisher MD Sprain of left hip, initial encounter (Primary Dx); Chronic left-sided low back pain with left-sided sciatica; Folliculitis; Nasal congestion; Class 3 severe obesity due to excess calories without serious comorbidity with body mass index (BMI) of 45.0 to 49.9 in adult ([facility]) 07/17/2024 Telephone [facility] MED[facility] [address] [place] [address] Willa Charles MD Nurse Triage 06/03/2024 2:45 PM EST Office Visit [facility] MED[facility] [address] [place] [address] Willa Charles MD COVID-19 virus infection (Primary Dx); Nasal congestion; Right non-suppurative otitis media; Missed period 06/03/2024 Telephone [facility] MED[facility] [address] [place] [address] Willa Charles MD insurance 05/31/2024 Telephone [facility] [address] [place] [address] Willa Charles MD Nurse Triage from Last 3 Months Immunizations Name Administration Dates Next Due DTP 01/03/1992, 9,1987,1987,1987 DTaP 01/03/1992, 9,1987,1987,1987 HPV, Quadrivalent 09/03/2008,03/26/2008,12/18/19 08 Hep B, Adolescent or Pediatric 03/08/2000,1999,06/09/1998 Hib (HbOC) 03/08/2000,08/18/1988 Influenza injectable quadriv alent IIV4 with preservative 02/19/2016,05/15/2015 Influenza, Split (incl. keith fied surface antigen) 03/28/2012 MMR 11/19/1999,08/18/1988,05/20/1988 OPV 01/03/1992, 9,1987,1986 TD (adult), 2 Lf tetanus tox oid, preservative free, adsorbed 11/19/1999 Tdap 12/03/2010 Social History Tobacco Use Types Packs/Day Years Used Date Smoking Tobacco: Never Passive Smoke Exposure: Never Smokeless Tobacco: Never Tobacco Cessation:Counseling Given: Not Answered Alcohol Use Standard Drinks/Week Comments Never 0 [...] Orientation Straight 03/28/2022 10 :20 AM EDT Last Filed Vital Signs Vital Sign Reading [...] Mass Index 49.61 07/17/2024 5:51 PM EST Plan of Treatment Upcoming Encounters Date Type Department Care Team ([facility] st Contact Info) Description 08/26/2024 9:15 AM EDT Office Visit [facility] MEDICINE [address] [place] [address] Willa Charles MD [address] [place] [address] Health Maintenance Due Date Last Done Comments HIV Screening 1987 Family Planning (PISQ) 2002 Hepatitis C Screening 2005 DTaP/Tdap/Td Vaccines (7 - Td or Tdap) 12/03/2020 12/03/2010, 11/19/1999, 01/03/1992, Additional history exists COVID-19 Vaccine ( season) 2024 06/25/2020, 06/04/2020 Influenza Vaccine (#1) 2024 6, 05/15/2015, 03/28/2012 SDOH Screening 08/08/2024 08/09/2023 Alcohol/Substance Use Screening 12/17/2024 12/18/2023 Depression Screening 12/17/2024 12/18/2023, 12/18/19 24 Lipid Panel 05/12/2025 05/12/2020 Tobacco Screening 06/03/2025 06/03/2024 Diabetes: Hemoglobin A1C 07/17/2025 025, 12/18/2023, 05/12/2020 Cervical Cancer Screening 03/10/2027 HPV/Cotest 03/10/2027 03/10/2022, 03/10/2022 Pap Smear 03/10/2027 03/10/2022 Zoster Vaccines (1 of 2) 2037 RSV Patients and Patients Aged 60 years or older (1 - 1-dose 75+ series) 2062 IPV Vaccines Completed 01/03/1992, 07/1988, 1987, Additional history exists HIB Vaccines Completed 03/08/2000, 08/18/1988 Hepatitis B Vaccines Completed 03/08/2000, 11/10/1999, 06/09/1998 HPV Vaccines Completed 09/03/2008, 02/27, 12/18/2007 Hepatitis A Vaccines Aged Out No long er eligible based on patient's age to complete this topic Meningococcal Vaccine Aged Out No megan jennifer eligible based on patient's age to complete this topic Pneumococcal Vaccine: Pediatrics (0 to 5 Years) and At-Risk Patients (6 to 49) Years) Aged Out No longer eligible based on patient's age to complete this topic RSV under 20 months Aged Out No longe r eligible based on patient's age to complete this topic Rotavirus Vaccines Aged Out No longer eligible based on patient's age to complete this topic Procedures Procedure Name Priority Date/Time Associated Diagnosis Comments POCT GLUCOSE Routine 07/17/2024 7:16 PM EST Class 3 severe obesity due to excess calories without serious comorbidity with body mass index (BMI) of 45.0 to 49.9 in adult ([facility]) POCT GLYCATED HEMOGLOBIN, TOTAL Routine 07/17/2024 7:16 PM EST Class 3 severe obesity due to excess calories without serious comorbidity with body mass index (BMI) of 45.0 to 49.9 in adult ([facility]) POCT INFLUENZA B Routine 06/03/2024 3:10 PM EST Nasal congestion POCT INFLUENZA A Routine 06/03/2024 3:10 PM EST Nasal congestion POCT RAPID COVID ANTIGEN Routine 06/03/2024 3:10 PM EST Nasal congestion ZZZ HISTORICAL HPV E6/E7 RFLX SHIRLEY 16 18/45 Routine 03/10/2022 10:45 AM EDT PAP SMEAR Routine 03/10/2022 12:00 AM EDT LIPID PANEL, STANDARD Routine 05/12/2020 2:36 PM EST from Last 3 Months or Most Recently Relevant to Health Maintenance Results * POCT HGB A1C (07/17/2024 7:16 PM EST) Hemoglobin A1C 5.9 4.0 - 6.0 % QC Media Lot # [id number] Lot# Expiration Date [id number] Blood 07/17/2024 7:16 PM EST Result [facility] Clarita Fisher MD POINT OF CARE TEST ENTER /EDIT ORDERABLES Final Result * POCT Glucose (07/17/2024 7:16 PM EST) [facility] Glucose Blood, POC 97 60 - 200 mg/dL QC Media Lot # [id number] Lot# Expiration Date 025 Blood Capillary blood specimen / Unknown 07/17/2024 7:16 PM EST Result [facility] Clarita Fisher MD POINT OF CARE TEST ENTER /EDIT ORDERABLES Final Result * (ABNORMAL) POCT Rapid Covid-19 BinaxNOW (06/03/2024 3:10 PM EST) [facility] Rapid COVID Ag Positive QC Media Lot # [id number] Lot# Expiration Date 3,026 Swab 06/03/2024 3:10 PM EST Result [facility] Willa Lombardi MD POINT OF CARE TEST EN TER/EDIT ORDERABLES Final Result * POCT Rapid Influenza B OSOM (06/03/2024 3:10 PM EST) [facility] Rapid Influenza B Ag Negative Negative, Indeterminate QC Media Lot # [id number] Lot# Expiration Date ,025 Swab 06/03/2024 3:10 PM EST Result [facility] Willa Lombardi MD POINT OF CARE TEST EN TER/EDIT ORDERABLES Final Result * POCT Rapid Influenza A OSOM (06/03/2024 3:10 PM EST) [facility] Rapid Influenza A Ag Negative Negative, Indeterminate QC Media Lot # [id number] Lot# Expiration Date ,025 Swab Nasopharyngeal structure / Unknown 06/03/2024 3:10 PM EST Willa Lombardi MD POINT OF CARE TEST EN TER/EDIT ORDERABLES Final Result * HPV E6/E7 RFLX SHIRLEY 16 18/45 (03/10/2022 10:45 AM EDT) Pathologist [facility] HPV mRNA E6/E7 rflx Not Detected Not Detected [facility] Comment: Methodology: Automobile Body Repair Supervisor-Mediated Amplification This assay detects E6/E7 viral messenger RNA (mRNA) from 14 high-risk HPV types (16,18,31,33,35,39,45,51,52,56,58,59,66,68). Cervical sources are required for HPV testing. If a vaginal source from a patient who has had a total hysterectomy with removal of cervix was submitted, please contact the testing laboratory for alternative testing options. For additional information, please refer to http://education.[employer]/faq/AWR438l7 (This link if provided for information/ educational purposes only.) THIS TEST WAS PERFORMED AT: [facility] [address] [facility] [address] [facility] [place], [place] ??[phone] BEATRIZ GONSALEZ MD 03/10/2022 10:4 5 AM EDT Holly Butt HISTORICAL/NON ORDERABLE LABS Fi nal Result Performing Organization Address City/[facility]/ZIP Co de Phone Number [facility] * Pap Smear (03/10/2022 12:00 AM EDT) Swab Historical Provider MD LAB CYTOLOGY ORDERABLES F inal Result [facility] [address] [place], [place] [phone] * (ABNORMAL) LIPID PANEL, STANDARD (05/12/2020 2:36 PM EST) [facility] Chol/HDLC Ratio 3.5 <5.0 (calc) [facility] Cholesterol, Total 173 <200 mg/dL [facility] HDL Cholesterol 49(L) > OR = 50 mg/dL [facility] LDL Cholesterol 97 mg/dL (calc) [facility] Comment: Reference range: <100 ?? Desirable range <100 mg/dL for primary prevention; ?? <70 mg/dL for patients with CHD or diabetic patients ?? with > or = 2 CHD risk factors. ?? LDL-C is now calculated using the Darrel ?? calculation, which is a validated novel method providing ?? better accuracy than the Friedewald equation in the ?? estimation of LDL-C. ?? Andrey SANDOVAL et al. ELVIA. 2013;310(19): 4629-8653 ?? (http://In*Situ [employer]/faq/VYO167) Non-HDL Cholesterol 124 <130 mg/dL (calc) [facility] Comment: For patients with diabetes plus 1 major ASCVD risk ?? factor, treating to a non-HDL-C goal of <100 mg/dL ?? (LDL-C of <70 mg/dL) is considered a therapeutic ?? option. Triglycerides 169(H) <150 mg/dL [facility] 05/12/2020 2:36 PM EST Willa Lombardi MD LAB BLOOD ORDERABLES Final Result [facility] [address] from Last 3 Months or Most Recently Relevant to Health Maintenance Insurance [facility] Care Teams Journeyman Electrician Pv Installer Relationship Specialty Start Date End Date Willa Charles MD [address] [place] [phone] PCP - General Family Medicine 02/07/18
== END 2024-07-25 14:18 | disposition home or self-care (01) ==
PROVIDERS: PCP Internal Medicine; Visit Provider Advanced Practice Midwife
DX: Z01.419 Encounter for gynecological examination (general) (routine) without abnormal findings (principal); E28.2 Polycystic ovarian syndrome; N92.6 Irregular menstruation, unspecified
CPT/HCPCS: 99395; 99459

== ENCOUNTER 2024-07-25 13:11 | Outpatient (REF) | payer OTHER, SELFPAY ==
--- OUTSIDE RECORDS SUMMARY | 2024-07-25 17:10 | XMS_ITS | Encounter Summary ---
Author Organization [employer] Address [address] [place] [address] 7t [place] [address] Care Team Providers Care Shirt Ironer Supervisor Name Role Phone Willa Charles MD Primary Care Provide r Encounter Details Date Type Department Care Team (Late st Contact Info) Description 08/19/2022 Orders Only [facility] MEDICINE [address] [place] [phone] Willa Charles MD [address] [place], [place] [phone] Pruritus (Primary Dx) Social History Tobacco Use [...] Description 08/26/2024 9:15 AM EDT Office Visit [facility] MEDICINE [address] [place] [phone] Willa Charles MD [address] [place], [place] [phone] documented as of this encounter Visit Diagnoses Diagnosis Pruritus- Primary Unspecified pruritic disorder documented in this encounter Care Teams Shirt Ironer Supervisor Relationship Specialty Start Date End Date Willa Charles MD [address] [place], [place] [phone] PCP - General Family Medicine 02/07/18 documented as of this encounter
--- OUTSIDE RECORDS SUMMARY | 2024-07-25 17:10 | XMS_ITS | Clinical Summary ---
Author Organization [facility] Address [address] [place] [phone] Phone Care Team Providers Care Calender Worker Helper Name Role Phone Lakeisha Lau NP Primary [...] age to complete this topic Care Teams Calender Worker Helper Relationship Specialty Start Date End Date Lakeisha Lau NP PCP - General 01/06/17
--- OUTSIDE RECORDS SUMMARY | 2024-07-25 17:10 | XMS_ITS | Encounter Summary ---
Author Organization [employer] Address [address] [place] [address] 7[address] [place] [address] Care Team Providers Care Bat Carrier Name Role Phone Willa Charles MD Primary Care Provide r Reason for Referral * Consultation (Routine) - Closed Specialty Diagnoses / Procedures Referred By Contac t Referred To Contact Physical Therapy Diagnoses Sprain of left hip, initial encounter Chronic left-sided low back pain with left-sided sciatica Clarita Fisher MD [address] [place] [phone] Phone: tel: fax: [facility] Physical Therapy [address] [place] [address] Phone: tel: fax: Referral ID Status Reason Start Date Expiration Date V isits Requested Visits Authorized [id number] Closed Specialty Services Required 07/17/2024 07/17/2025 1 1 Reason for Visit * Reason Comments left leg pain Encounter Details Date Type Department Care Team (Late st Contact Info) Description 07/17/2024 6:00 PM EST Office Visit [facility] [address] [place] [phone] Clarita Fisher MD [address] [place] [address] [phone] Sprain of left hip, initial encounter (Primary Dx); Chronic left-sided low back pain with left-sided sciatica; Folliculitis; Nasal congestion; Class 3 severe obesity due to excess calories without serious comorbidity with body mass index (BMI) of 45.0 to 49.9 in adult ([facility]) Social History Tobacco Use Types Packs/Day Years [...] (BMI) of 45.0 to 49.9 in adult ([facility]) Neck pain Muscle spasm Tinea versicolor PCOS [...] % Final QC Media Lot # 07/17/2024 [id number] Final Lot# Expiration Date 07/17/2024 [id number] Final Glucose Blood, POC 07/17/2024 97 60 - 200 mg/dL Final QC Media Lot # 07/17/2024 [id number] Final Lot# Expiration Date 07/17/2024 [id number] Final Problem List Items Addressed This Visit [...] (BMI) of 45.0 to 49.9 in adult ([facility]) No evidence of DM Advised to fu [...] Description 08/26/2024 9:15 AM EDT Office Visit [facility] [address] [place] [phone] Willa Charles MD [address] [place] [address] Scheduled Referrals Name Type Priority Associated Diagnoses [...] (BMI) of 45.0 to 49.9 in adult ([facility]) POCT GLUCOSE Routine 07/17/2024 7:16 PM EST Class 3 severe obesity due to excess calories without serious comorbidity with body mass index (BMI) of 45.0 to 49.9 in adult ([facility]) documented in this encounter Results * POCT [...] (BMI) of 45.0 to 49.9 in adult ([facility]) documented in this encounter Administered Medications Inactive [...] documented as of this encounter Care Teams Bat Carrier Relationship Specialty Start Date End Date Willa Charles MD [address] [place] [address] PCP - General Family Medicine 02/07/18 documented as of this encounter
--- OUTSIDE RECORDS SUMMARY | 2024-07-25 17:10 | XMS_ITS | Clinical Summary ---
Author Organization [employer] Address [address] [place] [address] 7t [place] [address] Care Team Providers Care Quantitative Equity Head Name Role Phone Willa Charles MD Primary Care Provide r Allergies Active Allergy Reactions Criticality Noted Date Comments Penicillin G Benzathine Itching 08/18/2022 Pt received bicillin injections #1 on 08/11/22 and area around injection sites were hard, red and warm to the touch. [place] Flavoring Agent (Non-Screening) 12/10/2014 Medications fluticasone (Flonase) [...] Description 07/17/2024 6:00 PM EST Office Visit [facility] [address] [place] [phone] Clarita Fisher MD Sprain of left hip, initial encounter (Primary Dx); Chronic left-sided low back pain with left-sided sciatica; Folliculitis; Nasal congestion; Class 3 severe obesity due to excess calories without serious comorbidity with body mass index (BMI) of 45.0 to 49.9 in adult ([facility]) 07/17/2024 Telephone [facility] [address] [place] [address] Willa Cahrles MD Nurse Triage 06/03/2024 2:45 PM EST Office Visit [facility] [address] [place] [address] Willa Charles MD COVID-19 virus infection (Primary Dx); Nasal congestion; Right non-suppurative otitis media; Missed period 06/03/2024 Telephone [facility] [address] [place] [address] Willa Charles MD insurance 05/31/2024 Telephone [facility] [address] [place] [address] Willa Charles MD Nurse Triage from Last [...] Upcoming Encounters Date Type Department Care Team ([facility] st Contact Info) Description 08/26/2024 9:15 AM EDT Office Visit [facility] [address] [place] [address] Willa Charles MD [address] [place] [address] Health Maintenance Due Date Last Done Comments [...] (BMI) of 45.0 to 49.9 in adult ([facility]) POCT GLYCATED HEMOGLOBIN, TOTAL Routine 07/17/2024 7:16 PM EST Class 3 severe obesity due to excess calories without serious comorbidity with body mass index (BMI) of 45.0 to 49.9 in adult ([facility]) POCT INFLUENZA B Routine 06/03/2024 3:10 PM [...] [id number] Blood 07/17/2024 7:16 PM EST Result [facility] Clarita Fisher MD POINT OF CARE TEST ENTER /EDIT ORDERABLES Final Result * POCT Glucose (07/17/2024 7:16 PM EST) [facility] Glucose Blood, POC 97 60 - 200 mg/dL QC Media Lot # [id number] Lot# Expiration Date 025 Blood Capillary blood specimen / Unknown 07/17/2024 7:16 PM EST Result [facility] Clarita Fisher MD POINT OF CARE TEST ENTER /EDIT ORDERABLES Final Result * (ABNORMAL) POCT Rapid Covid-19 BinaxNOW (06/03/2024 3:10 PM EST) [facility] Rapid COVID Ag Positive QC Media Lot # [id number] Lot# Expiration Date 3,026 Swab 06/03/2024 3:10 PM EST Result [facility] Willa Lombardi MD POINT OF CARE TEST EN TER/EDIT ORDERABLES Final Result * POCT Rapid Influenza B OSOM (06/03/2024 3:10 PM EST) [facility] Rapid Influenza B Ag Negative Negative, Indeterminate QC Media Lot # [id number] Lot# Expiration Date ,025 Swab 06/03/2024 3:10 PM EST Result [facility] Willa Lombardi MD POINT OF CARE TEST EN TER/EDIT ORDERABLES Final Result * POCT Rapid Influenza A OSOM (06/03/2024 3:10 PM EST) [facility] Rapid Influenza A Ag Negative Negative, Indeterminate QC Media Lot # [id number] Lot# Expiration Date ,025 Swab Nasopharyngeal structure / Unknown 06/03/2024 3:10 PM EST Willa Lombardi MD POINT OF CARE TEST EN TER/EDIT ORDERABLES Final Result * HPV E6/E7 RFLX SHIRLEY 16 18/45 (03/10/2022 10:45 AM EDT) Pathologist [facility] HPV mRNA E6/E7 rflx Not Detected Not Detected [facility] Comment: Methodology: Tariff Compiling Clerk-Mediated Amplification This assay detects E6/E7 viral messenger RNA (mRNA) from 14 high-risk HPV types (16,18,31,33,35,39,45,51,52,56,58,59,66,68). Cervical sources are required for HPV testing. If a vaginal source from a patient who has had a total hysterectomy with removal of cervix was submitted, please contact the testing laboratory for alternative testing options. For additional information, please refer to http://education.Wummelkiste/faq/JPJ803v5 (This link if provided for information/ educational purposes only.) THIS TEST WAS PERFORMED AT: [email or web address] [address] [facility] [address] [facility] [place], [place] ??[phone] BEATRIZ GONSALEZ MD 03/10/2022 10:4 5 AM EDT Holly Butt HISTORICAL/NON ORDERABLE LABS Fi nal Result Performing Organization Address City/[facility]/ZIP Co de Phone Number [facility]VERTED [facility]GACY [facility] * Pap Smear (03/10/2022 12:00 AM EDT) Swab Historical Provider MD LAB CYTOLOGY ORDERABLES F inal Result [facility] [address] [place], [place] [phone] * (ABNORMAL) LIPID PANEL, STANDARD (05/12/2020 2:36 PM EST) [facility] Chol/HDLC Ratio 3.5 <5.0 (calc) [facility] [...] ?? Andrey SANDOVAL et al. ELVIA. 2013;310(19): 8612-2912 ?? (http://Lendsquare.Stubmatic/faq/NYE997) Non-HDL Cholesterol 124 <130 mg/dL (calc) [facility] [...] Final Result [facility] [address] from Last 3 Months or Most Recently Relevant to Health Maintenance Insurance [facility] Care Teams Quantitative Equity Head Relationship Specialty Start Date End Date Willa Charles MD [address] [place] [phone] PCP - General Family Medicine 02/07/18
--- OUTSIDE RECORDS SUMMARY | 2024-07-25 17:10 | XMS_ITS | Encounter Summary ---
Author Organization [facility] Address [address] [place] [address] Phone Care Team Providers Care Battery Checker Name Role Phone Lakeisha Lau NP Primary Care Provider Unavail able Encounter Details Date Type Department Care Team (Late st Contact Info) Description 01/12/2017 Conversion Encounter [facility] - [address] [address] Social History Tobacco Use Types Packs/Day Years [...] on filedocumented in this encounter Care Teams Battery Checker Relationship Specialty Start Date End Date Lakeisha Lau NP PCP - General 01/06/17 documented as of this encounter
--- OUTSIDE RECORDS SUMMARY | 2024-07-25 17:10 | XMS_ITS | Encounter Summary ---
Author Organization [employer] Address [address] [place] [address] 7 [place] [address] Care Team Providers Care Creative Services Intern Name Role Phone Willa Charles MD Primary Care Provide r Reason for Visit * Reason Onset Date Comments Referral 08/02/2022 Encounter Details Date Type Department Care Team ([facility] st Contact Info) Description 08/02/2022 Telephone [facility] [address] [place] [address] Willa Charles MD [address] [place] [address] Referral Social History Tobacco Use Types Packs/Day [...] is requesting referral to be faxed to [phone]. RNwill request referral to be placed by Dr. Sal and send message to referral team to process referral STAT as pt's appt is on 08/04/22. * Telephone Encounter - Leisaraphael Darin Willingham - 08/02/2022 11:22 AM EST Tc From [facility] with Facility of Dr. Yash Calderon, is requesting a referral for [facility] Consultation.Britton states that pt is already schedule in for an appt on 08/04/2022. Britton provided IP Number which is [phone] and also the facility fax number [phone] Please contact Britton if any questions at [phone] documented in this encounter Plan of Treatment Upcoming Encounters Date Type Department Care Team (Late st Contact Info) Description 08/26/2024 9:15 AM EDT Office Visit [facility] [address] [place] [phone] Willa Charles MD [address] [place] [address] documented as of this encounter Visit Diagnoses Not on filedocumented in this encounter Care Teams Creative Services Intern Relationship Specialty Start Date End Date Willa Charles MD [address] [place] [phone] PCP - General Family Medicine 02/07/18 documented as of this encounter
--- OUTSIDE RECORDS SUMMARY | 2024-07-25 17:10 | XMS_ITS | Encounter Summary ---
Author Organization [employer] Address [address] [place] [address] 7t [place] [address] Care Team Providers Care Nuclear Physics Professor Name Role Phone Willa Charles MD Primary Care Provide r Encounter Details Date Type Department Care Team (Late st Contact Info) Description 02/27/2023 Abstract [facility] [address] [place] [phone] Isabella West Social History Tobacco Use Types [...] Description 08/26/2024 9:15 AM EDT Office Visit [facility] [address] [place] [phone] Willa Charles MD [address] [place], [place] [phone] documented as of this encounter Visit Diagnoses Not on filedocumented in this encounter Additional Health Concerns Assessment Noted Time PHQ-9 Depression Total Score: 0 11/08/19 23 9:20 AM EDT documented as of this encounter Care Teams Nuclear Physics Professor Relationship Specialty Start Date End Date Willa Charles MD [address] [place] [address] PCP - General Family Medicine 02/07/18 documented as of this encounter
--- OUTSIDE RECORDS SUMMARY | 2024-07-25 17:10 | XMS_ITS | Encounter Summary ---
Author Organization [employer] Address [address] [place] [address] 7t [place] [address] Care Team Providers Care Dental Technologist Name Role Phone Willa Charles MD Primary Care Provide r Reason for Visit * Reason Onset Date Comments Nurse Triage 07/17/2024 Encounter Details Date Type Department Care Team ([facility] st Contact Info) Description 07/17/2024 Telephone [facility] [address] [place] [address] Willa Charles MD [address] [place] [address] Nurse Triage Social History Tobacco Use Types [...] injury. Pt is advised to come to [facility] this evening to see provider. Pt PCP isworking in [facility] this evening, open till 8pm. Pt agrees to come to [facility] in hopes to speak with PCP also. [...] Visit [facility] [address] [place] [address] Willa Charles MD [address] [place] [address] documented as of this encounter Visit Diagnoses Not on filedocumented in this encounter Additional Health Concerns Assessment Noted Time PHQ-9 Depression Total Score: 0 12/18/19 24 10:49 AM EDT documented as of this encounter Care Teams Dental Technologist Relationship Specialty Start Date End Date Willa Charles MD [address] [place] [phone] PCP - General Family Medicine 02/07/18 documented as of this encounter
[2024-07-30 13:47] LABS: HPV Genotype 16 Negative (Negative); HPV Genotype 18 Negative (Negative); HPV High Risk Negative (Negative)
== END 2024-07-25 13:12 | disposition home or self-care (01) ==
LOC: HO.LNP 13:11
PROVIDERS: PCP Internal Medicine; Visit Provider Advanced Practice Midwife
DX: Z01.419 Encounter for gynecological examination (general) (routine) without abnormal findings (principal); N89.8 Other specified noninflammatory disorders of vagina; N92.6 Irregular menstruation, unspecified; L68.0 Hirsutism; E66.01 Morbid (severe) obesity due to excess calories; Z11.51 Encounter for screening for human papillomavirus (HPV); Z20.2 Contact with and (suspected) exposure to infections with a predominantly sexual mode of transmission
CPT/HCPCS: 87626; 88175; 99395; 99459

== ENCOUNTER 2024-07-25 14:02 | Outpatient (REF) | payer OTHER, SELFPAY ==
[2024-07-26 11:46] LABS: Bacterial Vaginosis PCR POSITIVE (Negative); Candida Group PCR NOT DETECTED (Not Detect); Candida glab krusei PCR NOT DETECTED (Not Detect); Trichomonas vaginalis PCR NOT DETECTED (Not Detect)
[2024-07-26 12:14] LABS: CT PCR NOT DETECTED (Not Detect.); NG PCR NOT DETECTED (Not Detect.)
== END 2024-07-25 14:03 | disposition home or self-care (01) ==
LOC: HO.LAB 14:02
PROVIDERS: Visit Provider Advanced Practice Midwife
DX: N89.8 Other specified noninflammatory disorders of vagina (principal); Z20.2 Contact with and (suspected) exposure to infections with a predominantly sexual mode of transmission
CPT/HCPCS: 81515; 87491; 87591

== ENCOUNTER 2024-10-07 11:42 | Outpatient (REF) | payer OTHER, SELFPAY ==
--- OUTSIDE RECORDS SUMMARY | 2024-10-07 12:27 | XMS_ITS | Encounter Summary ---
Author Organization [employer] Address [address] [place] [address] [address] [address] Care Team Providers Care Short Story Writer Name Role Phone Willa Charles MD Primary Care Provide r Reason for Referral * Consultation (Routine) - Pending Review Specialty Diagnoses / Procedures Referred By Contac t Referred To Contact Wound Care Diagnoses Open wound Willa Charles MD [address] [place] [address] Phone: tel: fax: Referral ID Status Reason Start Date Expiration Date Visits Requested Visits Authorized [id number] Pending Review Specialty Services Required 10/07/2024 10/07/2025 1 1 * Consultation (Routine) - Pending Review Specialty Diagnoses / Procedures Referred By Contac t Referred To Contact Obstetrics and Gynecology Diagnoses PCOS (polycystic ovarian syndrome) Willa Charles MD [address] [place] [address] Phone: tel: fax: Referral ID Status Reason Start Date Expiration Date Visits Requested Visits Authorized [id number] Pending Review Specialty Services Required 10/07/2024 10/07/2025 1 1 Reason for Visit * Reason Comments Annual Exam Foot Pain Encounter Details Date Type Department Care Team (Late st Contact Info) Description 10/07/2024 10:15 AM EDT Office Visit [facility] [address] [place] [address] Willa Charles MD [address] [place] [address] Encounter for preventive care; Dietary counseling; Exercise counseling; Class 3 severe obesity due to excess calories without serious comorbidity with body mass index (BMI) of 45.0 to 49.9 in adult; Positive serology for syphilis; PCOS (polycystic ovarian syndrome); Open wound; Nasal congestion Social History Tobacco Use Types Packs/Day Years [...] Answer Date Recorded Patient Health Questionnaire-9 Score 16 10/07/2024 Patient Health Questionnaire-9 Score 16 10/07/2024 Last PHQ-9: Questionnaire Data Not on file 0 10/07/2024 Housing Stability Answer Date Recorded What is your housing situation today? I have dhruv alexis 10/07/[address] you li ve. Do you have problems with any of the following? None of the above 10/07/2024 Food Insecurity Answer Date Recorded Within the past 12 months, y ou worried that your food would run out before you got money to buy more: Often true 10/07/2024 Within the past 12 months,th e food you bought just didn't last and you didn't have enough money to get more: Often true 04/2025 Transportation Answer Date Recorded In the past 12 months, has l ack of transportation kept you from medical appts, meetings, work or from getting things needed for daily living? Yes, it has kept me from non-medical meetings, work, or getting things that I need;Yes, it has kept me from medical appointments or getting medications. 10/07/2024 Utilities Answer Date Recorded In the past 12 months, has t he electric, gas, oil or water company threatened to shut off services in your home? No 10/07/2024 Depression Answer Date Recorded Patient Health Questionnaire-2 Score 2 10/07/2024 Internet Access Answer Date Recorded Internet Access Q1 Yes 10/07/2024 Internet Access Q2 Not on file 10/07/2024 Comments No Sex and Gender Information Value Date Recorded Sex Assigned at Female 03/28/2022 10:20 AM EDT Legal Sex Female 10:20 AM EDT Gender Identity Female 03/28/2022 10:20 AM EDT Sexual Orientation Straight 03/28/2022 10 :20 AM EDT documented as of this encounter Last Filed Vital Signs Vital Sign Reading Time Taken Comments Blood Pressure 110/74 10/07/2024 10:36 AM EDT Pulse 76 10/07/2024 10:36 AM EDT Temperature 36.1 ??C (97 ??F) 10/07/2024 10:36 AM EDT Respiratory Rate 20 10/07/2024 10:36 AM EDT Oxygen Saturation - - Inhaled Oxygen Concentration - - Weight 113 kg (249 lb 6.4 oz) 10/07/2024 10:36 A M EDT Height - - Body Mass Index 48.71 07/17/2024 5:51 PM EST documented in this encounter Plan of Treatment Scheduled Orders Name Type Priority Associated Diagnoses Orde r Schedule CBC auto differential Lab Routine Encounter for preventive care Expected: 10/07/2024 (Approximate), Expires: 10/07/2025 Comprehensive Metabolic Panel Lab Routine Encounter for preventive care Expected: 10/07/2024 (Approximate), Expires: 10/07/2025 Hemoglobin A1c Lab Routine Encounter for preventive care Expected: 10/07/2024 (Approximate), Expires: 10/07/2025 HIV-1/2 Antigen and Antibodies, Fourth Generation, with Reflexes Lab Routine Encounter for preventive care Expected: 10/07/2024 (Approximate), Expires: 10/07/2025 Hepatitis C Antibody with Reflex to HCV, RNA, Quantitative, Real-Time PCR Lab Routine Encounter for preventive care Expected: 10/07/2024, Expires: 10/07/2025 Lipid Panel, Standard Lab Routine Encounter for preventive care Expected: 10/07/2024 (Approximate), Expires: 10/07/2025 Vitamin D, 25-Hydroxy, Total, Immunoassay Lab Routine Encounter for preventive care Expected: 10/07/2024 (Approximate), Expires: 10/07/2025 TSH with Reflex to Free T4 Lab Routine Encounter for preventive care Expected: 10/07/2024 (Approximate), Expires: 10/07/2025 RPR (Monitor) with Reflex to??Titer Lab Routine Positive serology for syphilis Expected: 10/07/2024, Expires: 10/07/2025 Scheduled Referrals Name Type Priority Associated Diagnoses Order Schedule Referral to Obstetrics / Gynecology Outpatient Referral Routine PCOS (polycystic ovarian syndrome) Expected: 10/07/2024 (Approximate), Expires: 10/07/2025 Referral to Wound Clinic Outpatient Referral Routine Open wound Expected: 10/07/2024 (Approximate), Expires: 10/07/2025 documented as of this encounter Visit Diagnoses Diagnosis Encounter for preventive care Dietary counseling Dietary surveillance and counseling Exercise counseling Class 3 severe obesity due to excess calories without serious comorbidity with body mass index (BMI) of 45.0 to 49.9 in adult Positive serology for syphilis PCOS (polycystic ovarian syndrome) Polycystic ovaries Open wound Open wound(s) (multiple) of unspecified site(s), without mention of complication Nasal congestion Other diseases of nasal cavity and sinuses documented in this encounter Additional Health Concerns Assessment Noted Time PHQ-9 Depression Total Score: 16 025 11:39 AM EDT documented as of this encounter Care Teams Short Story Writer Relationship Specialty Start Date End Date Willa Charles MD [address] [place] [phone] PCP - General Family Medicine 02/07/18 documented as of this encounter
--- OUTSIDE RECORDS SUMMARY | 2024-10-07 12:27 | XMS_ITS | Encounter Summary ---
Author Organization [employer] Address [address] [place] [address] [address]t [place] [address] Care Team Providers Care Water Filterer Helper Name Role Phone Willa Charles MD Primary Care Provide r Reason for Visit * Reason Onset Date Comments Chart Prep 10/04/2024 Encounter Details Date Type Department Care Team ([facility] st Contact Info) Description 10/04/2024 Telephone [facility] [address] [place] [address] Willa Charles MD [address] [place] [address] Chart Prep Social History Tobacco Use Types Packs/Day Years [...] encounter Miscellaneous Notes * Telephone Encounter - Jennifer Martinez MA - 10/04/2024 8:35 AM EDT Chart Prep Labs: done Images: not applicable Referrals: not applicable Vaccines due: Covid and Flu Screenings: HIV Screening, Hepatitis C Screening Overdue care gaps: SDOH, Oral health screening, and Disability screen documented in this encounter Plan of Treatment Not on file documented as of this encounter Visit Diagnoses Not on filedocumented in this encounter Additional Health Concerns Assessment Noted Time PHQ-9 Depression Total Score: 0 12/18/19 24 10:49 AM EDT documented as of this encounter Care Teams Water Filterer Helper Relationship Specialty Start Date End Date Willa Charles MD [address] [place] [address] PCP - General Family Medicine 02/07/18 documented as of this encounter
--- OUTSIDE RECORDS SUMMARY | 2024-10-07 12:28 | XMS_ITS | Encounter Summary ---
Author Organization [employer] Address [address] [place] [address] 7[address] [place] [address] Care Team Providers Care Manager Enterprise Name Role Phone Willa Charles MD Primary Care Provide r Encounter Details Date Type Department Care Team (Late st Contact Info) Description 10/02/2024 10:20 AM EDT Office Visit [facility] [address] [place] [id number] Sergio Chapa MD [address] [place] [address] Foot laceration, left, initial encounter (Primary Dx); Encounter for immunization; Routine adult health maintenance; Sprain of left hip, initial encounter Social History Tobacco Use Types Packs/Day Years [...] the past 12 months, has t he [employer], gas, oil or water [employer] threatened to shut off services in your [...] Sign Reading Time Taken Comments Blood Pressure 141/80 10/02/2024 9:47 AM EDT Pulse 93 10/02/2024 9:47 AM EDT Temperature 37.2 ??C (98.9 ??F) 10/02/2024 9:47 AM ED T Respiratory Rate 18 10/02/2024 9:47 AM EDT Oxygen Saturation 98% 10/02/2024 9:47 AM EDT RA Inhaled Oxygen Concentration - - Weight - - Height - - Body Mass Index - - documented in this encounter Progress Notes * Sergio Chapa MD - 10/02/2024 10:20 AM EDTAssociated Order(s): Laceration Repair Post-Procedure Diagnose(s): Foot laceration, left, initial encounter Subjective Patient ID: Ne Neff is a 39 y.o. female. HPI Yesterday at about 9 PM, which is 13 hours ago, Claudette accidentally stepped on a piece of broken plate on the floor. She sustained a laceration o on her left foot plantar surface. She came to walk[facility]inclinic today to be evaluated. Wound is painful, no FB sensation. No fever, redness. Last Tdap was 12/03/2010. Lives with . LMP=3 weeks ago. 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 Never smoked. Patient Active Problem List Diagnosis ??? Childhood obesity ??? High grade squamous intraepithelial lesion of cervix ??? Polycystic ovary syndrome ??? Left foot pain ??? Class 3 severe obesity due to excess calories without serious comorbidity with body mass index (BMI) of 45.0 to 49.9 in adult ??? Neck pain ??? Muscle spasm ??? Tinea versicolor ??? PCOS (polycystic ovarian syndrome) ??? COVID-19 virus infection ??? Right non-suppurative otitis media ??? Missed period ??? Sprain of left hip ??? Chronic left-sided low back pain with left-sided sciatica ??? Folliculitis The following portions of the chart were reviewed this encounter and updated as appropriate: Tobacco Allergies Meds Problems Med Hx Surg Hx Fam Hx Review of Systems Constitutional: Negative for fever. Respiratory: Negative for shortness of breath. Cardiovascular: Negative for chest pain. Gastrointestinal: Negative for abdominal pain. Skin: Positive for wound. Negative for rash. Neurological: Negative for headaches. Objective Physical Exam Vitals and nursing note reviewed. Constitutional: Appearance: Normal appearance. HENT: Head: Normocephalic and atraumatic. Nose: Nose normal. Eyes: Conjunctiva/sclera: Conjunctivae normal. Pupils: Pupils are equal, round, and reactive to light. Pulmonary: Effort: Pulmonary effort is normal. Skin: General: Skin is warm and dry. Comments: Flap laceration over the proximal lateral plantar surface of the left foot measuring about 8 cm in length total. The edges of the flap are apart, not up approximated. Scant serosanguineous drainage. No foreign body sensation to palpation. Neurological: Mental Status: She is alert. Gait: Gait is intact. Psychiatric: Mood and Affect: Mood and affect normal. Behavior: Behavior normal. Laceration Repair Date/Time: 10/02/2024 10:54 AM Performed by: Sergio Chapa MD Authorized by: Sergio Chapa MD Consent: Consent obtained: Verbal Consent given by: Patient Risks, benefits, and alternatives were discussed: yes Risks discussed: Infection, pain, retained foreign body and poor wound healing Alternatives discussed: No treatment [place] protocol: Procedure explained and questions answered to patient or proxy's satisfaction: yes Patient identity confirmed: Verbally with patient Anesthesia: Anesthesia method: None Laceration details: Location: Foot Foot location: Sole of L foot Length (cm): 8 (cm) Laceration depth: 1. Pre-procedure details: Preparation: Patient was prepped and draped in usual sterile fashion Exploration: Contaminated: no Treatment: Area cleansed with: Chlorhexidine Amount of cleaning: Standard Debridement: None Undermining: None Scar revision: no Skin repair: Repair method: Steri-Strips Approximation: Approximation: Close Repair type: Repair type: Simple Post-procedure details: Dressing: Sterile dressing Procedure completion: Tolerated Assessment/Plan Diagnoses and all orders for this visit: Foot laceration, left, initial encounter The patient's wound is over 13 hours old at this point, and also because of its size and location on the lower extremity, up-to-date guidelines are to avoid suturing because of risk of infection. The nurse cleaned the area and I used skin adhesive and Steri-Strips to try to approximate the wound flap edges. It was then covered with a protective dressing. Given Tdap. Prescribed acetaminophen, ibuprofen, and doxycycline. Given crutches and worse toward their use. Given work note. Was given dressing supplies for home. Given written nonsutured laceration instructions. Return to clinic if any signs of infection develop or for concerns. Encounter for immunization - TDAP VACCINE 7 yrs + - ibuprofen tablet 400 mg - ibuprofen tablet 400 mg - acetaminophen (Tylenol 8 Hour) 650 MG ER tablet; Take 1 tablet (650 mg) by mouth every 8 (eight) hours if needed for mild pain. Do not crush, chew, or split. Other orders - ibuprofen 400 MG tablet; Take 1 tablet (400 mg) by mouth every 6 (six) hours if needed for moderate pain or fever for up to 30 doses. - doxycycline (Vibramycin) 100 MG capsule; Take 1 capsule (100 mg) by mouth 2 times daily for 5 days. Take with at least 8 ounces (large glass) of water, do not lie down for 30 minutes after documented in this encounter Miscellaneous Notes * Patient Education Note - Sergio Chapa MD - 10/02/2024 2:43 PM EDT Images from the original note were not included. Patient Education Table of Contents Nonsutured Laceration Care To view videos and all your education online visit, [email or web address] or scan this QR code with your smartphone. Access to this content will in one year. Nonsutured Laceration Care A laceration is a cut that may go through all layers of the skin and into the tissue that is right under the skin. A laceration is usually stitched up (sutured) or closed with adhesive strips or skin glue shortly after the injury happens. However, if the wound is dirty or if several hours pass before medical treatment is provided, it is likely that bacteria will enter the wound. Closing a laceration after bacteria have entered it increases the risk for infection. In these cases, your health care provider may leave the laceration open (nonsutured) and cover it with a bandage (dressing). This type of treatment helps prevent infection and allows the wound to heal from the deepest layer of tissue damage up tothe surface. Nonsutured healing is also known as secondary wound healing. This is more common for wounds that involve loss of tissue, are irregular in shape and size, or are on surfaces of the body where movementmakes sutures or other closure methods impossible. How to care for your nonsutured laceration Follow instructions from your health care provider about how to take care of your wound. Keep the wound clean and dry. Change any dressings as told by your health care provider. This includes changing the dressing whenit starts to smell, or when it gets wet or dirty. Clean the wound one time each day, or as often as told by your health care provider. To clean your wound: 1. Wash your hands with soap and water for at least 20 seconds before and after touching your woundor changing your dressing. If soap and water are not available, use hand deaf and hard of hearing teacher. Remove any dressing as told by your health care provider. Clean the wound with water or irrigation solution as told by your health care provider. Pat the wound dry with a clean towel. Do not rub the wound. Apply a thin layer of antibiotic ointment or another topical ointment to the wound as told by your health care provider. This will prevent infection and keep the dressing from sticking to the wound. Apply a new dressing as told by your health care provider. Check your wound every day for signs of infection. Watch for: ? More redness, swelling, or pain. ? Fluid or blood. ? Warmth. ? Pus or a bad smell. Do not take baths, swim, or do anything that puts your wound underwater until your health care provider approves. Do not scratch or pick at the wound. Do not usedisinfectants or antiseptics, such as rubbing alcohol, to clean your wound unless told byyour health care provider. Follow these instructions at home: Medicines Take [id number] and prescription medicines only as told by your health care provider. If you were prescribed an antibiotic medicine, take or apply it as told by your health care provider. Do not stop using the antibiotic even if your condition improves. Managing pain and swelling If directed, put ice on the injured area. To do this: ? Put ice in a plastic bag. ? Place a towel between your skin and the bag. ? Leave the ice on for 20 minutes, 2?3 times a day. ? Remove the ice if your skin turns bright red. This is very important. If you cannot feel pain, heat, or cold, you have a greater risk of damage to the area. Raise (elevate) the injured area above the level of your heart while you are sitting or lying down. General instructions Avoid any activity that could cause your laceration to reopen. Keep all follow-up visits. This is important. Contact a health care provider if: You received a tetanus shot and you have swelling, severe pain, redness, or bleeding at the injection site. Your pain is not controlled with medicine. You have any of these signs of infection: ? More redness, swelling, or pain around your wound. ? Fluid or blood coming from your wound. ? Warmth coming from your wound. ? Pus or a bad smell coming from your wound. ? A fever. You notice something coming out of the wound, such as wood or glass. You notice a change in the color of your skin near your wound. You develop a new rash. You need to change the dressing often. You develop numbness around your wound. Get help right away if: Your pain suddenly increases and is severe. You develop severe swelling around the wound. The wound is on your hand or foot, and you cannot properly move a finger or toe. The wound is on your hand or foot, and you notice that your fingers or toes look pale or bluish. You have a red streak going away from your wound. You develop painful lumps near the wound or on skin anywhere else on your body. Summary A laceration is a cut that may go through all layers of the skin and into the tissue that is right under the skin. It is usually closed with stitches, tape, or skin glue shortly after the injury happens. If a wound is dirty or if several hours pass before medical treatment is provided, the laceration may be kept open (nonsutured) and covered with a bandage. Nonsutured laceration helps prevent infection and allows the wound to heal from the deepest layer of tissue damage up to the surface. Follow instructions from your health care provider about how to take care of your wound. This information is not intended to replace advice given to you by your health care provider. Make sure you discuss any questions you have with your health care provider. Document Released: 2007-04-12 Document Updated: 2021-07-22 Document Reviewed: 2021-07-22 [employer] Patient Education ? 2024 [employer] documented in this encounter Plan of Treatment Not on file documented as of this encounter Procedures Procedure Name Priority Date/Time Associated Diagnosis Comments LACERATION REPAIR Routine 10/02/2024 10: 54 AM EDT Foot laceration, left, initial encounter documented in this encounter Results * Laceration Repair (10/02/2024 10:54 AM EDT) Sergio Porras MD - 10/02/2024 10:54 AM EDT Sergio Chapa MD ? 10/02/2024 ??1:48 PM Laceration Repair Date/Time: 10/02/2024 10:54 AM Performed by: Sergio Chapa MD Authorized by: Sergio Chapa MD ?? Consent: ??Consent obtained: ??Verbal ??Consent given by: ??Patient ??Risks, benefits, and alternatives were discussed: yes ?Risks discussed: ??Infection, pain, retained foreign body and poor wound healing ??Alternatives discussed: ??No treatment [place] protocol: ??Procedure explained and questions answered to patient or proxy's satisfaction: yes ?Patient identity confirmed: ??Verbally with patient Anesthesia: ??Anesthesia method: ??None Laceration details: ??Location: ??Foot ??Foot location: ??Sole of L foot ??Length (cm): ??8 (cm) ??Laceration depth: 1. Pre-procedure details: ??Preparation: ??Patient was prepped and draped in usual sterile fashion Exploration: ??Contaminated: no ?? Treatment: ??Area cleansed with: ??Chlorhexidine ??Amount of cleaning: ??Standard ??Debridement: ??None ??Undermining: ??None ??Scar revision: no ?? Skin repair: ??Repair method: ??Steri-Strips Approximation: ??Approximation: ??Close Repair type: ??Repair type: ??Simple Post-procedure details: ??Dressing: ??Sterile dressing ??Procedure completion: ??Tolerated Sergio Chapa MD IN CLINIC/BEDSIDE ORDERABLES Fin al Result documented in this encounter Visit Diagnoses Diagnosis Foot laceration, left, initial encounter- Primary Encounter for immunization Routine adult health maintenance Sprain of left hip, initial encounter documented in this encounter Administered Medications Inactive Administered Medications - up to 3 most recent administrations Medication Order MAR Action Action Date Dose Rate Site ibuprofen tablet 400 mg 400 mg, Oral, Once, On Mon10/02/24 at 1030, For 1 doseIndications:Encounter for immunization,Routine adult health maintenance Given 10/02/2024 10:30 AM EDT 400 mg documented in this encounter Additional Health Concerns Assessment Noted Time PHQ-9 Depression Total Score: 0 12/18/19 24 10:49 AM EDT documented as of this encounter Care Teams Manager Enterprise Relationship Specialty Start Date End Date Willa Charles MD [address] [place] [address] PCP - General Family Medicine 02/07/18 documented as of this encounter
--- OUTSIDE RECORDS SUMMARY | 2024-10-07 12:28 | XMS_ITS | Encounter Summary ---
Author Organization [employer] Address [address] [place] [address] [address] [place] [address] Care Team Providers Care Jack Of All Trades Name Role Phone Willa Charles MD Primary Care Provide r Reason for Visit * Reason Onset Date Comments Referral 08/02/2022 Encounter Details Date Type Department Care Team ([facility] st Contact Info) Description 08/02/2022 Telephone [facility] [address] [place] [address] Willa Charles MD [address] [place] [address] Referral Social History Tobacco Use Types Packs/Day [...] is requesting referral to be faxed to [phone]. RNwill request referral to be placed by Dr. Sal and send message to referral team to process referral STAT as pt's appt is on 08/04/22. * Telephone Encounter - Martha Willingham - 08/02/2022 11:22 AM EST Tc From [facility] with Facility of Dr. Yash Calderon, is requesting a referral for [facility].Britton states that pt is already schedule in for an appt on 08/04/2022. Britton provided IP Number which is [phone] and also the facility fax number [phone] Please contact Britton if any questions at [phone] documented in this encounter Plan of Treatment Not on file documented as of this encounter Visit Diagnoses Not on filedocumented in this encounter Care Teams Jack Of All Trades Relationship Specialty Start Date End Date Willa Charles MD [address] [place] [id number] PCP - General Family Medicine 02/07/18 documented as of this encounter
--- OUTSIDE RECORDS SUMMARY | 2024-10-07 12:28 | XMS_ITS | Clinical Summary ---
Author Organization [facility] Address [address] [place] [address] Phone Care Team Providers Care Jig Bore Operator Name Role Phone Lakeisha Lau NP Primary [...] age to complete this topic Care Teams Jig Bore Operator Relationship Specialty Start Date End Date Lakeisha Lau NP PCP - General 01/06/17
--- OUTSIDE RECORDS SUMMARY | 2024-10-07 12:28 | XMS_ITS | Encounter Summary ---
Author Organization [employer] Address [address] [place] [address] [address] [place] [address] Care Team Providers Care Production Line Welder Name Role Phone Willa Charles MD Primary Care Provide r Reason for Visit * Reason Onset Date Comments Nurse Triage 07/17/2024 Encounter Details Date Type Department Care Team ([facility] st Contact Info) Description 07/17/2024 Telephone [facility] [address] [place] [address] Willa Charles MD [address] [place] [address] Nurse Triage Social History Tobacco Use Types [...] injury. Pt is advised to come to [facility] this evening to see provider. Pt PCP isworking in [facility] this evening, open till 8pm. Pt agrees to come to [facility] in hopes to speak with PCP also. [...] - Bathtub Option * Telephone Encounter - Yary Jacob - 07/17/2024 3:44 PM EST Symptom: [...] documented as of this encounter Care Teams Production Line Welder Relationship Specialty Start Date End Date Willa Chrales MD [address] [place] [id number] PCP - General Family Medicine 02/07/18 documented as of this encounter
--- OUTSIDE RECORDS SUMMARY | 2024-10-07 12:28 | XMS_ITS | Encounter Summary ---
Author Organization [employer] Address [address] [place] [address] [address] [place] [address] Care Team Providers Care Crop Or Grain Farmworker Name Role Phone Willa Charles MD Primary Care Provide r Encounter Details Date Type Department Care Team ([facility] st Contact Info) Description 08/19/2022 Orders Only [facility] [address] [place] [address] Willa Charles MD [address] [place] [address] Pruritus (Primary Dx) Social History Tobacco Use [...] disorder documented in this encounter Care Teams Crop Or Grain Farmworker Relationship Specialty Start Date End Date Willa Charles MD [address] [place] [id number] PCP - General Family Medicine 02/07/18 documented as of this encounter
--- OUTSIDE RECORDS SUMMARY | 2024-10-07 12:28 | XMS_ITS | Encounter Summary ---
Author Organization [employer] Address [address] [place] [address] [address] [place] [address] Care Team Providers Care Hand Model Name Role Phone Willa Charles MD Primary Care Provide r Encounter Details Date Type Department Care Team (Late st Contact Info) Description 02/27/2023 Abstract [facility] [address] [place] [address] [place] Social History Tobacco Use Types [...] documented as of this encounter Care Teams Hand Model Relationship Specialty Start Date End Date Willa Charles MD [address] [place] [address] PCP - General Family Medicine 02/07/18 documented as of this encounter
--- OUTSIDE RECORDS SUMMARY | 2024-10-07 12:28 | XMS_ITS | Clinical Summary ---
Author Organization [employer] Address [address] [place] [address] 7[address] [place] [address] Care Team Providers Care Artificial Flowers Supervisor Name Role Phone Willa Charles MD Primary Care Provide r Allergies Active Allergy Reactions Criticality Noted Date Comments Penicillin G Benzathine Itching 08/18/2022 Pt received bicillin injections #1 on 08/11/22 and area around injection sites were hard, red and warm to the touch. [place] Flavoring Agent (Non-Screening) 12/10/2014 Medications * This document contains information received from the source organization and may not represent a complete record from that organization. fluticasone (Flonase) 50 MCG/ACT nasal sprayIndicatio ns:COVID [...] day. 15 tablet 07/17/19 25 026 Active cyclobenzaprin e (Flexeril) 10 MG tablet Take 1 tablet (10 mg) by mouth if needed at bedtime for muscle spasms for up to 10 days. 10 tablet 07/17/19 25 Active acetaminophen (Tylenol 8 Hour) 650 MG ER tabletIndicati ons:Sprain of left hip, initial encounter Take 1 tablet (650 mg) by mouth every 8 (eight) hours if needed for mild pain. Do not crush, chew, or split. 40 tablet 10/03/19 25 Active doxycycline (Vibramycin) 100 MG capsule Take 1 capsule (100 mg) by mouth 2 times daily for 5 days. Take with at least 8 ounces (large glass) of water, do not lie down for 30 minutes after 10 capsule 10/03/19 25 025 Active phentermine 15 MG capsuleIndicat ions:Class 3 severe obesity due to excess calories without serious comorbidity with body mass index (BMI) of 45.0 to 49.9 in adult Take 1 capsule (15 mg) by mouth before breakfast. 30 capsule 10/08/19 25 025 Active topiramate (Topamax) 25 MG tabletIndicati ons:Class 3 severe obesity due to excess calories without serious comorbidity with body mass index (BMI) of 45.0 to 49.9 in adult Take 1 tablet (25 mg) by mouth Once per day. 30 tablet 1 10/08/19 25 026 Active sulfamethoxazo le-trimethopri m (Bactrim DS) 800-160 MG tabletIndicati ons:Open wound Take 1 tablet by mouth 2 times daily for 7 days. 14 tablet 10/08/19 25 025 Active ibuprofen 800 MG tabletIndicati ons:Open wound Take 1 tablet (800 mg) by mouth every 8 (eight) hours if needed for mild pain for up to 10 days. 30 tablet 10/08/19 25 025 Active levocetirizine (Xyzal) 5 MG tabletIndicati ons:Nasal congestion Take 1 tablet (5 mg) by mouth in the evening. 30 tablet 3 10/08/19 25 Active bacitracin-alona ymyxin b (Polysporin) ointmentIndica tions:Open wound Apply topically 2 times daily. 30 g 10/08/19 25 Active acetaminophen (Tylenol 8 Hour) 650 MG ER tabletIndicati ons:Sprain of left hip, initial encounter Take 1 tablet (650 mg) by mouth every 8 (eight) hours if needed for mild pain. Do not crush, chew, or split. 90 tablet 07/17/19 25 025 Discontinued(Re order (will not trigger notification to Pharmacy)) levocetirizine (Xyzal) 5 MG tabletIndicati ons:Nasal congestion Take 1 tablet (5 mg) by mouth in the evening. 30 tablet 3 07/17/19 25 025 Discontinued(Re order (will not trigger notification to Pharmacy)) ibuprofen 400 MG tablet Take 1 tablet (400 mg) by mouth every 6 (six) hours if needed for moderate pain or fever for up to 30 doses. 30 tablet 10/03/19 025 Discontinued Hospital, Clinic, or Other Facility Administered Medication Ordered Dose Route Frequency Start Date End Date Status ibuprofen tablet 400 mgIndications:Encounter for immunization,Routine adult health maintenance 400 mg PO Once 10/02/2024 10/02/2024 Ended Active Problems Problem Noted Date Diagnosed Date Encounter for preventive care 10/07/2024 Positive serology for syphilis 10/07/2024 Open wound 10/07/2024 Adjustment disorder with mixed anxiety and depre ssed mood 10/07/2024 Sprain of left hip 07/17/2024 Assessment & [...] intraepithelial lesion of ce rvix 11/01/2012 Encounters * This document contains information received from the source organization and may not represent a complete record from that organization. Date Type Department Care Team Description 10/07/2024 10:15 AM EDT Office Visit [address] [address] Willa Charles MD Encounter for preventive care; Dietary counseling; Exercise counseling; Class 3 severe obesity due to excess calories without serious comorbidity with body mass index (BMI) of 45.0 to 49.9 in adult; Positive serology for syphilis; PCOS (polycystic ovarian syndrome); Open wound; Nasal congestion 10/07/2024 Travel 10/04/[address] [address] Willa Charles MD Chart Prep 10/02/2024 10:20 AM EDT Office Visit [facility] [address] [address] Sergio Chapa MD Foot laceration, left, initial encounter (Primary Dx); Encounter for immunization; Routine adult health maintenance; Sprain of left hip, initial encounter 08/26/[address] [address] Willa Charles MD No Show 07/25/2024 Orders Only GENERIC EXTERNAL DATA DEPARTMENT Provider, Generic External Data 07/17/2024 6:00 PM EST Office Visit [facility] [address] [address] Clarita Fisher MD Sprain of left hip, initial encounter (Primary Dx); Chronic left-sided low back pain with left-sided sciatica; Folliculitis; Nasal congestion; Class 3 severe obesity due to excess calories without serious comorbidity with body mass index (BMI) of 45.0 to 49.9 in adult ([facility]) 07/17/2024 Telephone [facility] [address] [place], [place] [phone] Willa Charles MD Nurse Triage from Last 3 Months Immunizations Name Administration Dates Next Due DTP 01/03/1992, 9,1987,1987,1987 DTaP 01/03/1992, 9,1987,1987,1987 HPV, Quadrivalent 09/03/2008,03/26/2008,12/18/19 08 Hep B, Adolescent or Pediatric 03/08/2000,1999,06/09/1998 Hib (HbO) 03/08/2000,08/18/1988 Influenza injectable quadriv alent IIV4 with preservative 02/19/2016,05/15/2015 Influenza, Split (incl. keith fied surface antigen) 03/28/2012 MMR 11/19/1999,08/18/1988,05/20/1988 OPV, Trivalent 01/03/1992, 9,1987,1986 TD (adult), 2 Lf tetanus tox oid, preservative free, adsorbed 11/19/1999 Tdap 10/02/2024,12/03/2010 Social History Tobacco Use Types Packs/Day Years [...] housing situation today? I have dhruv espinoza 10/07/[address] you li [...] 20 10/07/2024 10:36 AM EDT Oxygen Saturation 98% 10/02/2024 9:47 AM EDT RA Inhaled Oxygen Concentration - - Weight 113 kg (249 lb 6.4 oz) 10/07/2024 10:36 A M EDT Height 152.4 cm (5') 07/17/2024 5:51 PM EST Body Mass Index 48.71 07/17/2024 5:51 PM EST Plan of Treatment Health Maintenance Due Date Last Done Comments HIV Screening 1985 Family Planning (PISQ) 2002 Hepatitis C Screening 2005 COVID-19 Vaccine ( season) 2024 06/25/2020, 06/04/2020 Influenza Vaccine (#1) 2024 6, 05/15/2015, 03/28/2012 Alcohol/Substance Use Screening 12/17/2024 12/18/2023 Lipid Panel 05/12/2025 05/12/2020 Diabetes: Hemoglobin A1C 07/17/2025 025, 12/18/2023, 05/12/2020 Tobacco Screening 10/02/2025 10/02/2024 Depression Screening 10/07/2025 10/07/2024, 10/08/19 25 SDOH Screening 10/07/2025 10/07/2024 Cervical Cancer Screening 07/25/2029 HPV/Cotest 07/25/2029 07/25/2024, 02/26, 03/10/2022 Pap Smear 07/25/2029 07/25/2024, 03/10/2022 DTaP/Tdap/Td Vaccines (8 - Td or Tdap) 10/02/2034 10/02/2024, 12/03/2010, 11/19/1999, Additional history exists Zoster Vaccines (1 of 2) 2037 RSV [...] AM EDT Foot laceration, left, initial encounter PAP SMEAR Routine 07/25/2024 2:02 PM EST HPV DNA, LOW/HIGH RISK Routine 07/25/2024 2:02 PM EST POCT GLUCOSE Routine 07/17/2024 7:16 PM EST Class 3 severe obesity due to excess calories without serious comorbidity with body mass index (BMI) of 45.0 to 49.9 in adult (CMS/HCC) POCT GLYCATED HEMOGLOBIN, TOTAL Routine 07/17/2024 7:16 PM EST Class 3 severe obesity due to excess calories without serious comorbidity with body mass index (BMI) of 45.0 to 49.9 in adult ([facility]) LIPID PANEL, STANDARD Routine 05/12/2020 2:36 PM EST from Last 3 Months or Most Recently Relevant to Health Maintenance Results * Laceration Repair (10/02/2024 10:54 AM [...] poor wound healing ??Alternatives discussed: ??No treatment [place] protocol: ??Procedure explained and questions answered to [...] details: ??Dressing: ??Sterile dressing ??Procedure completion: ??Tolerated us Sergio Chapa MD IN CLINIC/BEDSIDE ORDERABLES Fin al Result * HPV DNA, Low/High Risk (07/25/2024 2:02 PM EST) HPV High Risk Negative Negative [facility] HPV Genotype 16 Negative Negative [facility] HPV Genotype 18 Negative Negative [facility] Comment:HPV testing performe d at [facility] (CLIA#[id number]), [address] [place] [address].Testing for HPV was performed using the [employer] KHADIJAH 6800system. The presence of HPV in the female genital tract isassociated with a number of diseases, including cervicalcarcinoma. The HPV DNA high risk pool tests for HPV 31, 33,35, 39, 45, 51, 52, 56, 58, 59, 66 and 68. The testing forHPV 16 and 18 genotypes has also been performed. A positiveresult indicates detection of nucleic acid sequences fromone or more subtypes, whereas a negative result indicatessuch sequences were not detected. 07/25/2024 2:02 PM EST 07/26/2024 6:00 AM EST us Generic External Data Provider LAB BLOOD ORDERAB LES Final Result [facility] [address] [place] [phone] * Pap Smear (07/25/2024 2:02 PM EST) 07/25/2024 2:02 PM EST 07/26/2024 6:00 AM EST [facility] - 07/30/2024 8:14 AM EST ----- ------- Name: Ne Neff ? Age/Sex: 39/F ? : 1985 Unit#: [id number] ?? Attend Dr: Esther Chiu CNM ?Re07/25/24 ?Status: DEP REF ? Location: HO.LNP ?Disch: ? ----- ------- SPEC : [id number] ? RECD: 07/26/24-599 ? STATUS: ??SOUT ? REQ NUM: [id number] ? VIDAL: 07/25/24-1402 ? SUBM DR: Esther Chiu CNM ? ENTERED: ??07/26/24-646 ?SP TYPE: Pap Smr ?OTHR DR: Willa Charles MD ? ORDERED: ??Pap Smear ? Interpretation ?? Satisfactory for evaluation. ?? Negative for intraepithelial lesion or malignancy. ?? No endocervical cells seen. ?? Coccobacilli consistent with shift in vaginal mason. ? HPV High Risk: ??Negative ? HPV Genotyping 16: ??Negative ?? HPV Genotyping 18: ??Negative ?Clinical Information LMP:Irregular menses Previous PAP test: 2021, Neg, history of abnormal PAP ? Material Received ?? Cervix Copies To: ?? Willa Charles MD ?? [facility] ?? [address] [facility] ?? [place] [address] ?? [phone] ?? Esther Chiu CNM ?? [facility] ?? [address] [facility], [address] ?? [place] [address] ?? [phone] ----- ------- Signed (signature on file) GUSTABO Hidalgo (ASCP) 07/30/2414 ? ----- ------- ? END OF REPORT ? Generic External Data Provider LAB CYTOLOGY TAMIKO BURDICK Final Result [facility] [address] [place] [phone] * POCT HGB A1C (07/17/2024 7:16 PM EST) [facility] Hemoglobin A1C 5.9 4.0 - 6.0 % QC Media Lot # [id number] Lot# Expiration Date [id number] Blood 07/17/2024 7:16 PM EST Clarita Fisher MD POINT OF CARE TEST ENTER /EDIT ORDERABLES Final Result * POCT Glucose (07/17/2024 7:16 PM EST) [facility] Glucose Blood, POC 97 60 - 200 mg/dL QC Media Lot # [id number] Lot# Expiration Date 3,416 Blood Capillary blood specimen / Unknown 07/17/2024 7:16 PM EST Clarita Fisher MD POINT OF CARE TEST ENTER /EDIT ORDERABLES Final Result * (ABNORMAL) LIPID PANEL, STANDARD (05/12/2020 2:36 PM EST) Pathologist [facility] Chol/HDLC Ratio 3.5 <5.0 (calc) [facility] Cholesterol, Total 173 <200 mg/dL [...] ?? Andrey SANDOVAL et al. ELVIA. 2013;310(19): 1730-6640 ?? (http://[email or web address][email or web address]/faq/NVR991) Non-HDL Cholesterol 124 <130 mg/dL (calc) [facility] Comment: For patients with diabetes plus 1 major ASCVD risk ?? factor, treating to a non-HDL-C goal of <100 mg/dL ?? (LDL-C of <70 mg/dL) is considered a therapeutic ?? option. Triglycerides 169(H) <150 mg/dL [facility] 05/12/2020 2:36 PM EST Willa Lombardi MD LAB BLOOD ORDERABLES Final Result [facility] [address] from Last 3 Months or Most Recently Relevant to Health Maintenance Insurance [facility] Care Teams Artificial Flowers Supervisor Relationship Specialty Start Date End Date Willa Charles MD [address] [place] [phone] PCP - General Family Medicine 02/07/18
--- OUTSIDE RECORDS SUMMARY | 2024-10-07 12:28 | XMS_ITS | Encounter Summary ---
Author Organization [facility] Address [address] [place] [address] Phone Care Team Providers Care Relocation Services Specialist Name Role Phone Lakeisha Lau NP Primary Care Provider Unavail able Encounter Details Date Type Department Care Team (Late st Contact Info) Description 01/12/2017 Conversion Encounter [facility] - [address] [address] Social History Tobacco Use Types Packs/Day Years [...] on filedocumented in this encounter Care Teams Relocation Services Specialist Relationship Specialty Start Date End Date Lakeisha Lau NP PCP - General 01/06/17 documented as of this encounter
--- OUTSIDE RECORDS SUMMARY | 2024-10-07 12:28 | XMS_ITS | Encounter Summary ---
Author Organization [employer] Address [address] [place] [address] [address] [place] [address] Care Team Providers Care Magazine Hand Name Role Phone Willa Charles MD Primary Care Provide r Encounter Details Date Type Department Care Team (Latest Contact Info) Description 10/07/2024 Travel Social History Tobacco Use Types Packs/Day Years [...] documented as of this encounter Care Teams Magazine Hand Relationship Specialty Start Date End Date Willa Charles MD [address] [place] [phone] PCP - General Family Medicine 02/07/18 documented as of this encounter
[2024-10-07 13:41] LABS: MANUAL DIFF FLAG NO
[2024-10-07 13:49] LABS: Basophils Absolute Auto 0.1 X10*3/uL (0.0-0.2); Basophils Percent Auto 0.6 % (0-2); Eosinophils Absolute Auto 0.2 X10*3/uL (0.0-0.4); Eosinophils Percent Auto 1.7 % (0-4); Hematocrit 43.8 % (37.0-47.0); Hemoglobin 14.4 g/dl (12.0-16.0); Imm Gran Abs Auto 0.02 X10*3/uL (0.00-0.03); Imm Gran Pct Auto 0.2 % (0.0-0.4); Lymphocytes Absolute Auto 3.3 X10*3/uL (1.2-4.9); Lymphocytes Percent Auto 37.8 % (20-40); Mean Corpuscular HGB Conc 32.9 g/dl (31.0-35.0); Mean Corpuscular Hemoglobin 29.7 pg (27.0-33.0); Mean Corpuscular Volume 90.3 fL (80.0-98.0); Mean Platelet Volume 10.7 fL (9.4-12.3); Monocytes Absolute Auto 0.5 X10*3/uL (0.1-1.2); Monocytes Percent Auto 6.2 % (2-11); Neutrophils Absolute Auto 4.7 x10*3/uL (2.0-8.3); Neutrophils Percent Auto 53.5 % (45-73); Platelet Count 457 X10*3/uL (160-400); Red Blood Count 4.85 X10*6/uL (4.20-5.50); White Blood Count 8.7 X10*3/uL (4.8-10.8)
[2024-10-07 13:57] LABS: Estimated Average Glucose 126 mg/dL; Hemoglobin A1C 162.3881 umol/L; Total Hemoglobin (HGBA1C) 3845.0926 umol/L
[2024-10-07 14:47] LABS: Alanine Aminotransferase 27 U/L (0-31); Albumin Level 4.3 g/dL (3.5-5.0); Alkaline Phosphatase 71 U/L (39-117); Anion Gap 12 (12-20); Aspartate Amino Transferase 29 U/L (5-31); Bilirubin Total 0.4 mg/dL (0.0-1.0); Blood Urea Nitrogen 12 mg/dL (9-16); Calcium 9.5 mg/dL (8.4-10.2); Carbon Dioxide 28 mmol/L (22-29); Chloride 106 mmol/L (96-108); Cholesterol 195 mg/dL (<200); Estimated Glomerular Filt Rate > 60; Glucose Random 104 mg/dL (60-115); HCG Quantitative < 2 mIU/mL; HDL Cholesterol 51 mg/dL (>40); LDL Cholesterol Calculated 108 mg/dL (<100); Potassium 4.1 mmol/L (3.3-5.1); Sodium 142 mmol/L (135-145); TSH reflex Free T4 0.66 uIU/mL (0.32-4.0); Triglycerides 181 mg/dL (<150); Vitamin D 25-OH Total 18.6 ng/mL (>30)
[2024-10-08 07:34] LABS: Syphilis Screen Reactive (Nonreactive)
[2024-10-08 07:37] LABS: HIV AB/AG Nonreactive (Nonreactive); HIV Num 1 0.07 S/CO (0.00-0.99); ~HepC Num1 0.08 S/CO (0.00-0.79); ~Hepatitis C Antibody Nonreactive (Nonreactive)
[2024-10-08 14:14] LABS: RPR Rapid Plasma Reagin REACTIVE (NON-REACTIVE)
[2024-10-13 13:48] LABS: RPR Quantitative Reactive 1:2 (Nonreactive); T.Pallidum Particle Agg Test Reactive (Nonreactive)
== END 2024-10-07 11:43 | disposition home or self-care (01) ==
LOC: HO.HHCL 11:42
PROVIDERS: Advanced Practice Midwife; Visit Provider Internal Medicine
DX: Z00.00 Encounter for general adult medical examination without abnormal findings (principal); A53.0 Latent syphilis, unspecified as early or late; N92.6 Irregular menstruation, unspecified
CPT/HCPCS: 36415; 80053; 80061; 82306; 83036; 84443; 84702; 85025; 86592; 86593; 86780; 86803; 87389

== ENCOUNTER 2025-02-25 18:35 | Outpatient (REF) | payer OTHER, SELFPAY ==
--- OUTSIDE RECORDS SUMMARY | 2025-02-25 09:15 | XMS_ITS | Encounter Summary ---
Author Organization [employer] Address [address] [place] [address] 7 [place] [address] Care Team Providers Care Fish Farm Manager Name Role Phone Willa Charles MD Primary Care Provide r Encounter Details Date Type Department Care Team (Late st Contact Info) Description 02/25/2025 9:15 AM EDT Office Visit [facility] [address] [place] [address] Willa Charles MD [address] [place] [address] Class 3 severe obesity due to excess calories without serious comorbidity with body mass index (BMI) of 45.0 to 49.9 in adult (Primary Dx); UTI symptoms; Missed period; PCOS (polycystic ovarian syndrome); 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 year old female who presents for Chronic Disease Management . Acute Concerns: Patient reports she is still struggling with her weight trying to be adherent to diet she was taking her phentermine 15 mg weekly with Topamax 25 mg but she thinks it did not work at all Patient has been having urinary frequency, denies dysuria lower abdominal pain or flank pain no blood in the urine no fever Patient reports she missed her period this month, she has PCOS and irregular. 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 Polycystic ovary syndrome Left foot pain Class 3 severe obesity due to excess calories without serious comorbidity with body mass index (BMI) of 45.0 to 49.9 in adult Neck pain Muscle spasm Tinea versicolor PCOS (polycystic ovarian syndrome) COVID-19 virus infection Right non-suppurative otitis media Missed period Sprain of left hip Chronic left-sided low back pain with left-sided sciatica Folliculitis Encounter for preventive care Positive serology for syphilis Open wound Adjustment disorder with mixed anxiety and depressed mood UTI symptoms Family History[2] Review of Systems Constitutional: Negative. HENT: Negative. Respiratory: Negative. Cardiovascular: Negative. Genitourinary: Positive for frequency and menstrual problem. Negative for decreased urine volume, difficulty urinating, dyspareunia, dysuria, enuresis, flank pain, genital sores, hematuria, pelvic pain, urgency, vaginal bleeding, vaginal discharge and vaginal pain. Musculoskeletal: Positive for back pain and myalgias. OBJECTIVE: Vitals: 02/25/25 0906 BP: 128/72 BP Location: Left arm Patient Position: Sitting BP Cuff Size: Adult Pulse: 78 Resp: 20 Temp: 97.6 ??F (36.4 ??C) TempSrc: Oral Weight: 241 lb (109 kg) Height: 5' (1.524 m) Physical Exam Constitutional: Appearance: Normal appearance. Cardiovascular: Rate and Rhythm: Normal rate and regular rhythm. Pulmonary: Effort: Pulmonary effort is normal. Breath sounds: Normal breath sounds. Abdominal: General: Abdomen is flat. Palpations: Abdomen is soft. Musculoskeletal: Lumbar back: Spasms and tenderness present. Neurological: Mental Status: She is alert. Follow Up: Follow up for 6 weeks oin adriana weight monitoring . Medications Ordered Prior to Encounter[3] Problem List Items Addressed This Visit Class 3 severe obesity due to excess calories without serious comorbidity with body mass index (BMI) of 45.0 to 49.9 in adult - Primary Extensive counseling about healthy diet and exercise done today I will increase phentermine dose to 37.5 mg daily patient denies any side effects from the previousdose I will follow-up with her again in person to with her in 4 to 6 weeks Relevant Medications phentermine 37.5 MG capsule metFORMIN, OSM, (Fortamet) 500 MG 24 hr tablet drospirenone-ethinyl estradiol (Jacquelyn, Ocella) 3-0.03 MG tablet UTI symptoms Relevant Medications drospirenone-ethinyl estradiol (Jacquelyn, Ocella) 3-0.03 MG tablet Other Relevant Orders POCT Urinalysis (Completed) Culture, Urine, Routine Missed period Relevant Medications drospirenone-ethinyl estradiol (Jacquelyn, Ocella) 3-0.03 MG tablet Other Relevant Orders POCT Urine (Completed) PCOS (polycystic ovarian syndrome) Continue with metformin 500 mg daily I added today control tablets to regulate her. And also for prevention of during the treatment for obesity Relevant Medications phentermine 37.5 MG capsule metFORMIN, OSM, (Fortamet) 500 MG 24 hr tablet drospirenone-ethinyl estradiol (Jacquelyn, Ocella) 3-0.03 MG tablet Chronic left-sided low back pain with left-sided sciatica Apply heat on affected area, I will refill her Flexeril and ibuprofen Relevant Medications cyclobenzaprine (Flexeril) 10 MG tablet ibuprofen 800 MG tablet [1] Patient Active Problem List Diagnosis Childhood obesity High grade squamous intraepithelial lesion of cervix Polycystic ovary syndrome Left foot pain Class 3 severe obesity due to excess calories without serious comorbidity with body mass index (BMI) of 45.0 to 49.9 in adult Neck pain Muscle spasm Tinea versicolor PCOS (polycystic ovarian syndrome) COVID-19 virus infection Right non-suppurative otitis media Missed period Sprain of left hip Chronic left-sided low back pain with left-sided sciatica Folliculitis Encounter for preventive care Positive serology for syphilis Open wound Adjustment disorder with mixed anxiety and depressed mood UTI symptoms [2] No family history on file. [3] Current Outpatient Medications on File Prior to Visit Medication Sig Dispense Refill acetaminophen (Tylenol 8 Hour) 650 MG ER tablet Take 1 tablet (650 mg) by mouth every 8 (eight) hours if needed for mild pain. Do not crush, chew, or split. 40 tablet 0 amoxicillin (Amoxil) 500 MG capsule TAKE 1 CAPSULE BY MOUTH EVERY TWELVE HOURS FOR 10 DAYS 20 capsule 0 bacitracin-polymyxin b (Polysporin) ointment Apply topically 2 times daily. 30 g 0 fluticasone (Flonase) 50 MCG/ACT nasal spray 1-2 sprays per nostril as needed for congestion up to BID, Shake gently. Before first use, prime pump. After use, clean tip and replace cap. 16 g 2 levocetirizine (Xyzal) 5 MG tablet TAKE 1 TABLET BY MOUTH EVERY EVENING 30 tablet 3 meloxicam (Mobic) 15 MG tablet Take 1 tablet (15 mg) by mouth Once per day. 15 tablet 0 topiramate (Topamax) 25 MG tablet TAKE 1 TABLET BY MOUTH EVERY DAY 30 tablet 1 [DISCONTINUED] cyclobenzaprine (Flexeril) 10 MG tablet Take 1 tablet (10 mg) by mouth if needed at bedtime for muscle spasms for up to 10 days. 10 tablet 0 [DISCONTINUED] ibuprofen 800 MG tablet TAKE 1 TABLET BY MOUTH EVERY 8 HOURS FOR 5 DAYS 20 tablet 0 [DISCONTINUED] metFORMIN, OSM, (Fortamet) 500 MG 24 hr tablet Take 1 tablet (500 mg) by mouth with evening meal. Do not crush, chew, or split. 30 tablet 11 [DISCONTINUED] phentermine 15 MG capsule TAKE 1 CAPSULE BY MOUTH EVERY DAY BEFORE BREAKFAST 30 capsule 0 No current facility-administered medications on file prior to visit. documented in this encounter Miscellaneous Notes * Assessment & Plan Note - Willa Lombradi MD - 02/25/2025 11:56 AM EDT Associated Problem(s): Chronic left-sided low back pain with left-sided sciatica Apply heat on affected area, I will refill her Flexeril and ibuprofen * Assessment & Plan Note - Willa Lombardi MD - 02/25/2025 11:56 AM EDT Associated Problem(s): PCOS (polycystic ovarian syndrome) Continue with metformin 500 mg daily I added today control tablets to regulate her. And also for prevention of during the treatment for obesity * Assessment & Plan Note - Willa Lombardi MD - 02/25/2025 11:55 AM EDT Associated Problem(s): Class 3 severe obesity due to excess calories without serious comorbidity with body mass index (BMI) of 45.0 to 49.9 in adult Extensive counseling about healthy diet and exercise done today I will increase phentermine dose to 37.5 mg daily patient denies any side effects from the previousdose I will follow-up with her again in person to with her in 4 to 6 weeks documented in this encounter Plan of Treatment Upcoming Encounters Date Type Department Care Team (Late st Contact Info) Description 05/07/2025 9:15 AM EST Office Visit [facility] [address] [place] [phone] Willa Charles MD [address] [place] [address] Scheduled Orders Name Type Priority Associated Diagnoses Orde r Schedule Culture, Urine, Routine Microbiology Routine UTI symptoms Expected: 02/25/2025 (Approximate), Expires: 02/25/2026 documented as of this encounter Procedures Procedure Name Priority Date/Time Associated Diagnosis Comments POCT URINALYSIS DIPSTICK Routine 02/25/2025 10:44 AM EDT UTI symptoms POCT , URINE Routine 02/25/2025 10:43 AM EDT Missed period documented in this encounter Results * POCT Urinalysis (02/25/2025 10:44 AM EDT) Color, UA Yellow Clarity, UA Clear Glucose, UA Negative Bilirubin, UA Negative Ketones, UA Negative Spec Grav, UA 1.025 Blood, UA Negative Negative, None Detected pH, UA 6.5 Protein, UA Trace Urobilinogen, UA 0.2 Leukocytes, UA Trace Negative, Rare, Trace Nitrite, UA Negative Negative, None Detected Appearance, UA clear QC Media Lot # [id number] Lot# Expiration Date 22,726 Urine 02/25/2025 10:4 4 AM EDT Willa Lombardi MD POINT OF CARE TEST EN TER/EDIT ORDERABLES Final Result * POCT Urine (02/25/2025 10:43 AM EDT) Preg Test, Ur Negative Negative, Indeterminate, None Detected, Invalid, Specimen unsatisfactory for evaluation, Weakly Positive, 2+ QC Media Lot # [id number] Lot# Expiration Date 113,026 Urine 02/25/2025 10:4 3 AM EDT Willa Lombardi MD POINT OF CARE TEST EN TER/EDIT ORDERABLES Final Result documented in this encounter Visit Diagnoses Diagnosis Class 3 severe obesity due to excess calories without serious comorbidity with body mass index (BMI) of 45.0 to 49.9 in adult (HCC)- Primary UTI symptoms Missed period PCOS (polycystic ovarian syndrome) Polycystic ovaries Chronic left-sided low back pain with left-sided sciatica documented in this encounter Additional Health Concerns Assessment Noted Time PHQ-9 Depression Total Score: 16 025 11:39 AM EDT documented as of this encounter Care Teams Fish Farm Manager Relationship Specialty Start Date End Date Willa Charles MD [address] [place] [phone] PCP - General Internal Medicine 10/07/24 documented as of this encounter
--- OUTSIDE RECORDS SUMMARY | 2025-02-25 18:37 | XMS_ITS | Encounter Summary ---
Author Organization [employer] Address [address] [place] [address] [address] [place] [address] Care Team Providers Care Library Media Technician Name Role Phone Willa Charles MD Primary Care Provide r Encounter Details Date Type Department Care Team (Latest Contact Info) Description 02/25/2025 Travel Social History Tobacco Use Types Packs/Day [...] Description 05/07/2025 9:15 AM EST Office Visit [facility] MED[facility]INE [address] [place] [address] Willa Charles MD [address] [place] [address] documented as of this encounter Visit Diagnoses Not on filedocumented in this encounter Additional Health Concerns Assessment Noted Time PHQ-9 Depression Total Score: 16 025 11:39 AM EDT documented as of this encounter Care Teams Library Media Technician Relationship Specialty Start Date End Date Willa Charles MD [address] [place] [phone] PCP - General Internal Medicine 10/07/24 documented as of this encounter
--- OUTSIDE RECORDS SUMMARY | 2025-02-25 18:37 | XMS_ITS | Encounter Summary ---
Author Organization [employer] Address [address] [place] [address] [facility] [place] [address] Care Team Providers Care History Department Chair Name Role Phone Willa Charles MD Primary Care Provide r Willa Charles MD Primary Care Provide r Reason for Visit * Reason Onset Date Comments Referral 08/02/2022 Encounter Details Date Type Department Care Team ([facility] st Contact Info) Description 08/02/[address] [facility] MED[facility]INE [address] [place] [address] Willa Charles MD [address] [place], [place] [phone] Referral Social History Tobacco Use Types Packs/Day [...] is requesting referral to be faxed to [phone]. RNwill request referral to be placed by Dr. Sal and send message to referral team to process referral STAT as pt's appt is on 08/04/22. * Telephone Encounter - Martha Willingham - 08/02/2022 11:22 AM EST Tc From [facility] with Facility of Dr. Yash Calderon, is requesting a referral for [facility].Britton states that pt is already schedule in for an appt on 08/04/2022. Britton provided IP Number which is [phone] and also the facility fax number [phone] Please contact Britton if any questions at [phone] documented in this encounter Plan of Treatment Upcoming Encounters Date Type Department Care Team (Late st Contact Info) Description 05/07/2025 9:15 AM EST Office Visit [facility] MEDICINE [address] [place] [phone] Willa Charles MD [address] [place] [address] documented as of this encounter Visit Diagnoses Not on filedocumented in this encounter Care Teams History Department Chair Relationship Specialty Start Date End Date Willa Charles MD [address] [place], [place] [phone] PCP - General Family Medicine 02/07/18 10/06/24 Willa Charles MD [address] [place] [phone] PCP - General Internal Medicine 10/07/24 documented as of this encounter
--- OUTSIDE RECORDS SUMMARY | 2025-02-25 18:37 | XMS_ITS | Encounter Summary ---
Author Organization [employer] Address [address] [place] [address] 7 [place] [address] Care Team Providers Care Tire Service Supervisor Name Role Phone Willa Charles MD Primary Care Provide r Willa Charles MD Primary Care Provide r Encounter Details Date Type Department Care Team ([facility] Contact Info) Description 08/19/2022 Orders Only [facility] [address] [place] [phone] Willa Charles MD [address] [place] [address] [phone] Pruritus (Primary Dx) Social History Tobacco Use [...] Upcoming Encounters Date Type Department Care Team ([facility] Contact Info) Description 05/07/2025 9:15 AM EST [facility] Visit [facility] [address] [place] [address] [place] [address] Willa Charles MD [address] [place] [address] documented as of this encounter Visit Diagnoses Diagnosis Pruritus- Primary Unspecified pruritic disorder documented in this encounter Care Teams Tire Service Supervisor Relationship Specialty Start Date End Date Willa Charles MD [address] [place] [phone] PCP - General Family Medicine 02/07/18 10/06/24 Willa Charles MD [address] [place] [phone] PCP - General Internal Medicine 10/07/24 documented as of this encounter
--- OUTSIDE RECORDS SUMMARY | 2025-02-25 18:38 | XMS_ITS | Encounter Summary ---
Author Organization [facility] Address [address] [place] [address] Phone Care Team Providers Care Tube Dispatcher Name Role Phone Lakeisha Lau NP Primary Care Provider Unavail able Encounter Details Date Type Department Care Team (Late st Contact Info) Description 01/12/2017 Conversion Encounter [facility] - [address] [address] Social History Tobacco Use Types Packs/Day Years [...] on filedocumented in this encounter Care Teams Tube Dispatcher Relationship Specialty Start Date End Date Lakeisha Lau NP PCP - General 01/06/17 documented as of this encounter
--- OUTSIDE RECORDS SUMMARY | 2025-02-25 18:38 | XMS_ITS | Clinical Summary ---
Author Organization [employer] Address [address] [place] [address] 7[address] [place] [address] Care Team Providers Care Waterworks Employee Name Role Phone Willa Charles MD Primary Care Provide r Allergies Active Allergy Reactions Criticality Noted Date Comments Penicillin G Benzathine Itching 08/18/2022 Pt received bicillin injections #1 on 08/11/22 and area around injection sites were hard, red and warm to the touch. [place] Flavoring Agent (Non-Screening) 12/10/2014 Medications * This [...] 10 DAYS 20 capsule 06/09/19 23 Active meloxicam (Mobic) 15 MG tablet Take 1 tablet (15 mg) by mouth Once per day. 15 tablet 07/17/19 25 026 Active acetaminophen (Tylenol 8 Hour) 650 MG ER tabletIndicati ons:Sprain of left hip, initial encounter Take 1 tablet (650 mg) by mouth every 8 (eight) hours if needed for mild pain. Do not crush, chew, or split. 40 tablet 10/03/19 25 Active bacitracin-alona ymyxin b (Polysporin) ointmentIndica tions:Open wound Apply topically 2 times daily. 30 g 10/08/19 25 Active topiramate (Topamax) 25 MG tabletIndicati ons:Class 3 severe obesity due to excess calories without serious comorbidity with body mass index (BMI) of 45.0 to 49.9 in adult ([facility]) TAKE 1 TABLET BY MOUTH EVERY DAY 30 tablet 1 12/13/19 25 Active levocetirizine (Xyzal) 5 MG tabletIndicati ons:Nasal congestion TAKE 1 TABLET BY MOUTH EVERY EVENING 30 tablet 3 12/31/19 25 Active phentermine 37.5 MG capsuleIndicat ions:Class 3 severe obesity due to excess calories without serious comorbidity with body mass index (BMI) of 45.0 to 49.9 in adult ([facility]) Take 1 capsule (37.5 mg) by mouth before breakfast. 30 capsule 02/26/20 25 025 Active metFORMIN, OSM, (Fortamet) 500 MG 24 hr tabletIndicati ons:PCOS (polycystic ovarian syndrome) Take 1 tablet (500 mg) by mouth with evening meal. Do not crush, chew, or split. 30 tablet 11 02/26/20 25 026 Active drospirenone-e thinyl estradiol (Jacquelyn, Ocella) 3-0.03 MG tabletIndicati ons:PCOS (polycystic ovarian syndrome) Take 1 tablet by mouth Once per day. 28 tablet 3 02/26/20 25 026 Active cyclobenzaprin e (Flexeril) 10 MG tabletIndicati ons:Chronic left-sided low back pain with left-sided sciatica Take 1 tablet (10 mg) by mouth if needed at bedtime for muscle spasms for up to 10 days. 10 tablet 02/26/20 25 025 Active ibuprofen 800 MG tabletIndicati ons:Chronic left-sided low back pain with left-sided sciatica Take 1 tablet (800 mg) by mouth every 8 (eight) hours if needed for mild pain. 30 tablet 02/26/20 25 Active metFORMIN, OSM, (Fortamet) 500 MG 24 hr tablet Take 1 tablet (500 mg) by mouth with evening meal. Do not crush, chew, or split. 30 tablet 11 12/18/19 24 025 Discontinued(Re order (will not trigger notification to Pharmacy)) cyclobenzaprin e (Flexeril) 10 MG tablet Take 1 tablet (10 mg) by mouth if needed at bedtime for muscle spasms for up to 10 days. 10 tablet 07/17/19 25 025 Discontinued(Re order (will not trigger notification to Pharmacy)) ibuprofen 800 MG tablet TAKE 1 TABLET BY MOUTH EVERY 8 HOURS FOR 5 DAYS 20 tablet 11/20/19 25 025 Discontinued(Re order (will not trigger notification to Pharmacy)) phentermine 15 MG capsuleIndicat ions:Class 3 severe obesity due to excess calories without serious comorbidity with body mass index (BMI) of 45.0 to 49.9 in adult ([facility]) TAKE 1 CAPSULE BY MOUTH EVERY DAY BEFORE BREAKFAST 30 capsule 01/24/20 025 Discontinued Active Problems Problem Noted Date Diagnosed Date UTI symptoms 02/25/2025 Encounter for preventive care 10/07/2024 Assessment & Plan (10/07/2024 1:29 PM EDT): See HPI Positive serology for syphilis 10/07/2024 Assessment & Plan (10/07/2024 1:30 PM EDT): Patient has a positive syphilis test I will monitor titers Open wound 10/07/2024 Assessment & Plan (10/07/2024 1:30 PM EDT): I prescribed for her Bactrim for 1 more week and ibuprofen for pain I also prescribed bacitracin ointment to apply locally I advised her not to bear weight on her foot, maintain area dry and clean I will refer her to wound care as well Adjustment disorder with mixed anxiety and depre [...] with left-sided sciatica 07/17/2024 Assessment & Plan (02/25/2025 11:56 AM EDT): Apply heat on affected area, I will refill her Flexeril and ibuprofen Assessment & Plan (07/17/2024 6:49 PM EST): [...] guidance reviewed PCOS (polycystic ovarian syndrome) 12/18/2023 Assessment & Plan (02/25/2025 11:56 AM EDT): Continue with metformin 500 mg daily I added today control tablets to regulate her. And also for prevention of during the treatment for obesity Assessment & Plan (10/07/2024 1:29 PM EDT): I refer her to gynecology Left foot pain 08/18/2023 Class 3 severe obesity due t o excess calories without serious comorbidity with body mass index (BMI) of 45.0 to 49.9 in adult 08/18/2023 Assessment & Plan (02/25/2025 11:55 AM EDT): Extensive counseling about healthy diet and exercise done today I will increase phentermine dose to 37.5 mg daily patient denies any side effects from the previous dose I will follow-up with her again in person to with her in 4 to 6 weeks Assessment & Plan (10/07/2024 1:30 PM EDT): Extensive counseling about healthy diet and exercise done today I decided to start her on phentermine and Topamax, extensive counseling about side effects of these medications were done, I also told her she cannot get while taking this medications I will contact her back in about 4 weeks to reassess Assessment & Plan (07/17/2024 7:07 PM EST): [...] Encounters Date Type Department Care Team Description 02/25/2025 9:15 AM EDT Office Visit [facility] [address] [place] [address] Willa Charles MD Class 3 severe obesity due to excess calories without serious comorbidity with body mass index (BMI) of 45.0 to 49.9 in adult (Primary Dx); UTI symptoms; Missed period; PCOS (polycystic ovarian syndrome); Chronic left-sided low back pain with left-sided sciatica 02/25/2025 Travel 02/13/2025 Telephone [facility] [address] [place] [address] Willa Charles MD telephone call 02/13/2025 Travel 01/23/2025 Telephone [facility] [address] [place] [phone] Willa Charles MD Medication Question 01/23/2025 Refill [facility] [address] [place] [address] Willa Charles MD Class 3 severe obesity due to excess calories without serious comorbidity with body mass index (BMI) of 45.0 to 49.9 in adult 12/29/2024 Refill [facility] [address] [place] [address] Willa Charles MD Nasal congestion 12/11/2024 Refill [facility] [address] [place] [address] Willa Charles MD Class 3 severe obesity due to excess calories without serious comorbidity with body mass index (BMI) of 45.0 to 49.9 in adult 12/05/2024 Telephone [facility] [address] [place] [address] Willa Charles MD No Show 12/04/2024 Telephone [facility] [address] [place] [address] Willa Charles MD Chart Prep from Last 3 Months Immunizations Immunization Administration Dates Next Due DTP [...] the past 12 months, has t he [employer], gas, oil or water company threatened to [...] 20 02/25/2025 9:06 AM EDT Oxygen Saturation 98% 10/02/2024 9:47 AM EDT RA Inhaled Oxygen Concentration - - Weight 109 kg (241 lb) 02/25/2025 9:06 AM EDT Height 152.4 cm (5') 02/25/2025 9:06 AM EDT Body Mass Index 47.07 02/25/2025 9:06 AM EDT Plan of Treatment Upcoming Encounters Date Type Department Care Team (Late st Contact Info) Description 05/07/2025 9:15 AM EST Office Visit [facility] [address] [place] [address] Willa Charles MD [address] [place], [place] [phone] Health Maintenance Due Date Last Done Comments Disability Screening 1987 Alcohol/Substance Use Screening 1999 Family Planning (PISQ) 2002 COVID-19 Vaccine ( season) 2025 06/25/2020, 06/04/2020 Influenza Vaccine (#1) 2025 6, 05/15/2015, 03/28/2012 Depression Monitoring 04/09/2025 10/07/2024, 025 Diabetes: Hemoglobin A1C 10/07/2025 025, 07/17/2024, 12/18/2023, Additional history exists SDOH Screening 10/07/2025 10/07/2024 Tobacco Screening 02/25/2026 02/25/2025 Cervical Cancer Screening 07/25/2029 HPV/Cotest 07/25/2029 07/25/2024, 02/26, 03/10/2022 Pap Smear 07/25/2029 07/25/2024, 03/10/2022 Lipid Panel 10/07/2029 10/07/2024, 05/12/2020 DTaP/Tdap/Td Vaccines (8 - Td or Tdap) 10/02/2034 10/02/2024, 12/03/2010, 11/19/1999, Additional history exists Zoster Vaccines (1 of 2) 2037 RSV Patients and Patients Aged 60 years or older (1 - 1-dose 75+ series) 2062 IPV Vaccines Completed 01/03/1992, 0807/1988, 1987, Additional history exists HIB Vaccines Completed 03/08/2000, 08/18/1988 Hepatitis B Vaccines Completed 03/08/2000, 11/10/1999, 06/09/1998 HPV Vaccines Completed 09/03/2008, 02/27, 12/18/2007 HIV Screening Completed 10/07/2024 Hepatitis C Screening Completed 10/07/2024 Hepatitis A Vaccines Aged Out No long er eligible based on patient's age to complete this topic Meningococcal B Vaccine Aged Out No l onger eligible based on patient's age to complete this topic Meningococcal Vaccine Aged Out No megan jennifer eligible based on patient's age to complete this topic Pneumococcal Vaccine: Pediatrics (0 to 5 Years) and At-Risk Patients (6 to 49) Years Aged Out No longer eligible based on [...] Routine 02/25/2025 10:43 AM EDT Missed period HEPATITIS C AB W/REFL TO HCV RNA, QN, PCR Routine 10/07/2024 11:44 AM EDT Encounter for preventive care HIV 1/2 ANTIGEN/ANTIBODY, FOURTH GENERATION W/RFL Routine 10/07/2024 11:44 AM EDT Encounter for preventive care HEMOGLOBIN A1C Routine 10/07/2024 11:44 AM EDT Encounter for preventive care LIPID PANEL, STANDARD Routine 10/07/2024 11:44 AM EDT Encounter for preventive care HPV DNA, LOW/HIGH RISK Routine 07/25/2024 2:02 PM EST PAP SMEAR Routine 07/25/2024 2:02 PM EST from Last 3 Months or Most Recently Relevant to Health Maintenance Results * POCT Urinalysis (02/25/2025 10:44 AM [...] Media Lot # [id number] Lot# Expiration Date Urine 02/25/2025 10:4 4 AM EDT us Willa Lombardi MD POINT OF CARE TEST EN TER/EDIT ORDERABLES Final Result * POCT Urine (02/25/2025 10:43 AM EDT) Pathologist [facility] Preg Test, Ur Negative Negative, Indeterminate, None Detected, Invalid, Specimen unsatisfactory for evaluation, Weakly Positive, 2+ QC Media Lot # [id number] Lot# Expiration Date [id number] Urine 02/25/2025 10:4 3 AM EDT us Willa Lombardi MD POINT OF CARE TEST EN TER/EDIT ORDERABLES Final Result * Hepatitis C Antibody with Reflex to HCV, RNA, Quantitative, Real-Time PCR (10/07/2024 11:44 AM EDT) [facility] Hepatitis C Antibody Nonreactive Nonreactive [facility] Comment:Antibodies to HCV no t detected; does not exclude early acuteHCV infection. Blood Venous blood specimen / Unknown 10/07/2024 11:44 AM EDT 10/07/2024 1:19 PM EDT us Willa Lombardi MD LAB BLOOD ORDERABLES Final Result [facility] [address] [place] [phone] * HIV-1/2 Antigen and Antibodies, Fourth Generation, with Reflexes (10/07/2024 11:44 AM EDT) Pathologist [facility] HIV AB/AG Nonreactive Nonreactive [facility] Comment:HIV-1 p24 Ag and/or HIV-1/HIV-2 Ab not detected.A test result that is nonreactive does not exclude thepossibility of exposure to or infection with HIV-1 and/orHIV-2. Nonreactive results in this assay for individualswith prior exposure to HIV-1 and/or HIV-2 may be due toantigen and antibody levels that are below the limit ofdetection of this assay.The AKTniMEEP HIV Ag/Ab Combo assay result andsupplemental assay results should be interpreted inconjunction with the patient's clinical presentation,history and other laboratory results. If the results areinconsistent with clinical evidence, additional testing issuggested to confirm the result. Blood Venous blood specimen / Unknown 10/07/2024 11:44 AM EDT 10/07/2024 1:19 PM EDT Willa Lombardi MD LAB BLOOD ORDERABLES Final Result Performing Organization Address [facility] Co de Phone Number [facility] [address] [place] [phone] * Hemoglobin A1c (10/07/2024 11:44 AM EDT) Hemoglobin A1c 6.0 <6.0 % [facility] Comment:Hemoglobin A1C Refer ence Range Adults: 4.8 - 6.0 % Non diabetic: < 6.0 % Goal: < 7.0 %Additional Action Suggested: > 8.0 %Note: Hemoglobin A1c results are invalid for patients with abnormal amounts of HbF. Blood transfusions may impact the HbA1c concentration in the patient sample. Estimated Average Glucose 126 mg/dL [facility] Comment:eAG = Estimated ave rage glucose which is %A1C expressed asaverage glucose, using the formula of the O3D-PiydugpBzkttbk Glucose study (ADAG), Diabetes Care, Vol.31,#8,Dec. 2007 Blood Venous blood specimen / Unknown 10/07/2024 11:44 AM EDT 10/07/2024 1:39 PM EDT us Willa Lombardi MD LAB BLOOD ORDERABLES Final Result Performing Organization Address [facility] Co de Phone Number [facility] [address] [place] [phone] * (ABNORMAL) Lipid Panel, Standard (10/07/2024 11:44 AM EDT) Triglycerides 181(H) <150 mg/dL [facility] Comment:Desirable Triglyceri de: less than 150 mg/dLBorderline High Triglyceride 150-199 mg/dLHigh Triglyceride: 200-499 mg/dLVery High Triglyceride: greater than or equal to 5OO mg/dL Cholesterol 195 <200 mg/dL [facility] Comment:Desirable Cholestero l: less than 200 mg/dLBorderline High Cholesterol: 200-239 mg/dLHigh Cholesterol: greater than 239 mg/dL LDL Cholesterol Calculated 108(H) <100 mg/dL [facility] Comment:Desirable LDL: less than 100 mg/dLNear Optimal/Above Optimal LDL: 110- 129 mg/dLBorderline High LDL: 130-159 mg/dLHigh LDL: 160-189 mg/dLVery High LDL: greater than or equal to 190 mg/dL HDL Cholesterol 51 >40 mg/dL [facility] Comment:Desirable HDL: great er than 40 mg/dL Note: This HDL assay may give artificially low results in patients with liver disease. Blood Venous blood specimen / Unknown 10/07/2024 11:44 AM EDT 10/07/2024 1:19 PM EDT us Willa Lombardi MD LAB BLOOD ORDERABLES Final Result [facility] [address] [place] [phone] * HPV DNA, Low/High Risk (07/25/2024 2:02 PM EST) HPV High Risk Negative Negative [facility] HPV Genotype 16 Negative Negative [facility] HPV Genotype 18 Negative Negative [facility] Comment:HPV testing performe d at [facility] (CLIA#[id number]), [address] [place] [address].Testing for HPV was performed using the [employer]0system. The presence of HPV in the female [...] Provider LAB BLOOD ORDERAB LES Final Result [facility] [address] [place] [phone] * Pap Smear (07/25/2024 2:02 PM EST) 07/25/2024 2:02 PM EST 07/26/2024 6:00 AM EST Narrative [facility] - 07/30/2024 8:14 AM EST ----- ------- Name: Ne Neff Age/Sex: 39/F [facility] 1985 [id number] [id number] Attend Dr: Esther Chiu CNM Re07/25/24 Status: DEP REF Location: [facility] Disch: ----- ------- SPEC : [id number] RECD: 07/26/24 STATUS: BRIT GRIER NUM: [id number] VIDAL: 07/25/[address]: Esther Chiu CNM ENTERED: 07/26/24 SP TYPE: Pap Smr OTHR DR: Willa Charles MD ORDERED: Pap Smear Interpretation Satisfactory for evaluation. Negative for intraepithelial lesion or malignancy. No endocervical cells seen. Coccobacilli consistent with shift in vaginal mason. HPV High Risk: Negative HPV Genotyping 16: Negative HPV Genotyping 18: Negative Clinical Information LMP:Irregular menses Previous PAP test: 2021, Neg, history of abnormal PAP Material Received Cervix Copies To: Willa Charles MD [address] [phone] Esther Chiu CNM [facility] [address] [facility] [place], [address]rd [place] [address] ----- ------- Signed (signature on file) GUSTABO Hidalgo (ASCP) 07/30/24 0814 ----- ------- END OF REPORT us Generic External Data Provider LAB CYTOLOGY TAMIKO BURDICK Final Result [facility] [address] [place] [phone] from Last 3 Months or Most Recently Relevant to Health Maintenance Insurance HSN [facility] [address] [place] [phone] Care Teams Waterworks Employee Relationship Specialty Start Date End Date Willa Charles MD [address] [place] [address] PCP - General Internal Medicine 10/07/24
--- OUTSIDE RECORDS SUMMARY | 2025-02-25 18:38 | XMS_ITS | Clinical Summary ---
Author Organization [facility] Address [address] [place] [phone] Phone Care Team Providers Care Urgent Care Name Role Phone Lakeisha Lau NP Primary [...] of 2 - 13+ 2-dose series) 2000 HPV Vaccines (1 - 3-dose SCDM series) 2014 Influenza Vaccines (#1) 2024 COVID-19 Vaccine ( - 2023- season) 2025 HIB Vaccines Completed 08/18/1988 IPV Vaccines Completed 01/03/1992, 07/1988, 1987, Additional history exists MMR Vaccines Completed 11/19/1999, 05/20/1988 Hepatitis B Vaccines Completed 03/08/2000, 11/10/1999, 06/09/1998 Hepatitis A Vaccines Aged Out No long [...] age to complete this topic Care Teams Urgent Care Relationship Specialty Start Date End Date Lakeisha Lau NP PCP - General 01/06/17
--- OUTSIDE RECORDS SUMMARY | 2025-02-25 18:38 | XMS_ITS | Encounter Summary ---
Author Organization [employer] Address [address] [place] [address] [address] [address] Care Team Providers Care Covered Buckle Assembler Name Role Phone Willa Charles MD Primary Care Provide r Willa Charles MD Primary Care Provide r Encounter Details Date Type Department Care Team (Late st Contact Info) Description 02/27/2023 Abstract [facility] [address] [place] [phone] Isabella [place] Social History Tobacco Use Types [...] Description 05/07/2025 9:15 AM EST Office Visit [facility] [address] [place], [place] [phone] Willa Charles MD [address] [place], [place] [phone] documented as of this encounter Visit Diagnoses Not on filedocumented in this encounter Additional Health Concerns Assessment Noted Time PHQ-9 Depression Total Score: 0 11/08/19 23 9:20 AM EDT documented as of this encounter Care Teams Covered Buckle Assembler Relationship Specialty Start Date End Date Willa Charles MD [address] [place] [address] PCP - General Family Medicine 02/07/18 10/06/24 Willa Charles MD [address] [place] [address] PCP - General Internal Medicine 10/07/24 documented as of this encounter
--- OUTSIDE RECORDS SUMMARY | 2025-02-25 18:38 | XMS_ITS | Encounter Summary ---
Author Organization [employer] Address [address] [place] [address] [address] [place] [address] Care Team Providers Care Hospice Fellow Name Role Phone Willa Charles MD Primary Care Provide r Willa Charles MD Primary Care Provide r Reason for Visit * Reason Onset Date Comments Nurse Triage 07/17/2024 Encounter Details Date Type Department Care Team ([facility] st Contact Info) Description 07/17/2024 Telephone [facility] [address] [place] [address] Willa Charles MD [address] [place], [place] [phone] Nurse Triage Social History Tobacco Use Types [...] the past 12 months, has t he [employer], gas, oil or water [employer] threatened to shut off services in your [...] injury. Pt is advised to come to [facility] this evening to see provider. Pt PCP isworking in [facility] this evening, open till 8pm. Pt agrees to come to [facility] in hopes to speak with [...] Bathtub Option * Telephone Encounter - Yary James - 07/17/2024 3:44 PM EST Symptom: Leg Pain - Not From Injury Outcome: Schedule an urgent appointment (within 1 hour) or talk to a nurse or provider soon Reason: Trouble walking The caller accepted this outcome. documented in this encounter Plan of Treatment Upcoming Encounters Date Type Department Care Team (Late st Contact Info) Description 05/07/2025 9:15 AM EST Office Visit [facility] [address] [place] [phone] Willa Charles MD [address] [place] [address] documented as of this encounter Visit Diagnoses Not on filedocumented in this encounter Additional Health Concerns Assessment Noted Time PHQ-9 Depression Total Score: 0 12/18/19 24 10:49 AM EDT documented as of this encounter Care Teams Hospice Fellow Relationship Specialty Start Date End Date Willa Charles MD [address] [place] [phone] PCP - General Family Medicine 02/07/18 10/06/24 Willa Charles MD [address] [place] [phone] PCP - General Internal Medicine 10/07/24 documented as of this encounter
== END 2025-02-25 18:36 | disposition home or self-care (01) ==
LOC: HO.HHCLNP 18:35
PROVIDERS: Visit Provider Internal Medicine
DX: R39.9 Unspecified symptoms and signs involving the genitourinary system (principal)
CPT/HCPCS: 87086